=== PATIENT | female | born 1985 | race African-American/Black ===

== ENCOUNTER 2018-06-02 12:58 | Inpatient (IN) | payer OTHER ==
[2018-06-02 15:32] VITALS: BMI 25.6
--- NOTE | 2018-06-02 17:03 | HP ---
CIWA Score - CIWA Score Nausea/Vomitin-No Nausea/No Vomiting Muscle Tremors: 2 Anxiety: 3 Agitation: 3 Paroxysmal Sweats: No Perspiration Orientation: 0-Oriented Tacttile Disturbances: 0-None Auditory Disturbances: 0-None Visual Disturbances: 1-Very Mild Sensitivity Headache: 0-None Present CIWA-Ar Total Score: 9 Admission [facility] - HPI Chief Complaint: alcohol withdrawal symptoms Allergies/Adverse Reactions: Allergies Allergy/AdvReac Type Severity Reaction Status Date / Time No Known Allergies Allergy Verified 06/02/18 16:45 History of Present Illness: 33 yo female with hx of nicotine, alcohol, cocaine / crack, and marijuana dependence is here seeking detox for alcohol. Last detox [facility] 10 months ago. PMHX: HTN (no meds), anemia, bipolar. Denies suicidal / homicidal ideation or hx of suicide attempt. Report episode of seixure in 2011 reports not alcohol. Reports frequent blackouts iwht last peisode two weeks ago. Denies Longest period of sobriety 2 years. Exam Limitations: No Limitations - Ebola screening Have you traveled outside of the country in the last 21 days: No Have you had contact with anyone from an Ebola affected area: No Have you been sick,other than usual withdrawal symptoms: No Do you have a fever: No - Review of Systems Constitutional: Loss of Appetite, Changes in sleep, Unintentional Wgt. Loss (45 lbs in the past six months) EENT: reports: No Symptoms Reported Respiratory: reports: No Symptoms reported Cardiac: reports: No Symptoms Reported GI: reports: Poor Appetite, Poor Fluid Intake : reports: No Symptoms Reported Musculoskeletal: reports: No Symptoms Reported Integumentary: reports: No Symptoms Reported Endocrine: reports: See HPI Hematology: reports: No Symptoms Reported Psychiatric: reports: Mood/Affect Appropiate, Orientated x3 Other Systems: Reviewed and Negative Patient History - Patient Medical History Hx Anemia: Yes (not taking any iron supplement, no hx blood transfusion) Hx Asthma: No Hx Chronic Obstructive Pulmonary Disease (COPD): No Hx Cancer: No Hx Cardiac Disorders: No Hx Hypertension: No Hx Hypercholesterolemia: No Hx Pacemaker: No HX Cerebrovascular Accident: No Hx Seizures: No Hx Dementia: No Hx Diabetes: No Hx Gastrointestinal Disorders: No Hx Liver Disease: No Hx Genitourinary Disorders: No Hx Sexually Transmitted Disorders: No Hx Renal Disease (ESRD): No Hx Thyroid Disease: No Hx Human Immunodeficiency Virus (HIV): No (negative) Hx Hepatitis C: No Hx Depression: Yes Hx Suicide Attempt: No Hx Bipolar Disorder: Yes Hx Schizophrenia: No - Patient Surgical History Past Surgical History: Yes Other Surgical History: colposcopy 1998, Vaginal Biopsy & Leep in 1999 Anesthesia Reaction: No - PPD History Previous Implant?: Yes Documented Results: Negative w/proof Implanted On Prior [facility] Admission?: Yes Date: 01/17/15 PPD to be Administered?: Yes - Reproductive History Patient is a Female of Child Bearing Age (11 -55 yrs old): No Last Menstrual Period: 03/10/18 (irregular on Depo Inj) Patient : No - Smoking Cessation Smoking history: Current every day smoker Have you smoked in the past 12 months: Yes Aproximately how many cigarettes per day: 10 Hx Chewing Tobacco Use: No Initiated information on smoking cessation: Yes 'Breaking Loose' booklet given: 06/02/18 - Substance & Tx. History Hx Alcohol Use: Yes Hx Substance Use: Yes Substance Use Type: Alcohol, Cocaine, Marijuana Hx Substance Use Treatment: Yes (Last detox [facility] 10 months ago ) - Substances Abused Alcohol Route: Oral Frequency: Daily Amount used: 1-2 pints vodka Age of first use: 14 Date of Last Use: 06/02/18 Cocaine Route: Inhalation Frequency: Daily Amount used: $30-40 Age of first use: 19 Date of Last Use: 06/01/18 Marijuana/Hashish Route: Smoking Frequency: Daily Amount used: 3-4 bags Age of first use: 14 Date of Last Use: 06/01/18 Family Disease History - Family Disease History Family Disease History: Heart Disease: Father (HTN ), Mother (HTN) Admission Physical Exam [facility] - Vital Signs Vital Signs: Vital Signs - 24 hr 06/02/18 15:26 Temperature 97.8 F Pulse Rate 61 Respiratory 20 Rate Blood Pressure 137/91 - Physical General Appearance: Yes: Disheveled, Thin, Irritable, Sweating, Anxious HEENTM: Yes: EOMI, Hearing grossly Normal, Normal ENT Inspection, Normal Voice, LAZARUS, Pharynx Normal, Tm's normal Respiratory: Yes: Chest Non-Tender, Lungs Clear, Normal Breath Sounds, No Respiratory Distress, No Accessory Muscle Use Neck: Yes: Within Normal Limits Breast: Yes: Breast Exam Deferred Cardiology: Yes: Regular Rhythm, Regular Rate Abdominal: Yes: Normal Bowel Sounds, Non Tender, Flat, Soft Genitourinary: Yes: Within Normal Limits Back: Yes: Normal Inspection Extremities: Yes: Normal Capillary Refill, Normal Inspection, Normal Range of Motion, Non-Tender 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 NML intact, Fully Oriented, Alert, Motor Strength 5/5, Normal Response, Depressed Affect Integumentary: Yes: Normal Color, Warm, Diaphoresis Lymphatic: Yes: Within Normal Limits - Diagnostic (1) Marijuana dependence Current Visit: Yes Status: Acute (2) Alcohol dependence with withdrawal Current Visit: Yes Status: Acute Qualifiers: Complication of substance-induced condition: uncomplicated Qualified Code(s ): F10.230 - Alcohol dependence with withdrawal, uncomplicated (3) Cocaine dependence Current Visit: Yes Status: Acute (4) Essential hypertension Current Visit: Yes Status: Chronic Comment: not on meds (5) Nicotine dependence Current Visit: Yes Status: Chronic Qualifiers: Nicotine product type: cigarettes Substance use status: in withdrawal Qualified Code(s): F17.213 - Nicotine dependence, cigarettes, with withdrawal Cleared for Admission [facility] - Detox or Rehab [facility] Level of Care: Medically Supervised Detox Regimen/Protocol: Librium [facility] Breath Alcohol Content Breath Alcohol Content: 0 Urine Pregancy Test - Result Urine Test Results: Negative- NO Line Present Urine Drug Screen - Results Drug Screen Negative: No Urine Drug Screen Results: THC-Marijuana, ULISES-Cocaine
[2018-06-02] MEDS ORDERED: P-EPHED 60MG/TRIPROLIDI 2.5MG TABLET PO PRN (17:07)
[2018-06-02] MEDS ORDERED: MAGNESIUM HYDROX 2400MG/30ML ORAL SUSPENSION 30 ML CUP PO PRN (17:07)
[2018-06-02] MEDS ORDERED: LOPERAMIDE HCL 2 MG CAPSULE PO PRN (17:07)
[2018-06-02] MEDS ORDERED: ACETAMINOPHEN 325 MG TABLET (FP) PO PRN (17:07)
[2018-06-02] MEDS ORDERED: chlordiazePOXIDE HCL 25 MG CAPSULE PO PRN (17:07)
[2018-06-02] MEDS ORDERED: NICOTINE POLACRILEX 2 MG GUM BC PRN (17:07)
[2018-06-02] MEDS ORDERED: MENTHOL/PHENOL 1 EACH UD MM PRN (17:07)
[2018-06-02] MEDS ORDERED: MAG HYDROX/AL HYDROX/SIMETH 30 ML UNIT-DOSE CUP PO PRN (17:07)
[2018-06-02] MEDS ORDERED: MAGNESIUM CITRATE 300 ML BOTTLE PO PRN (17:07)
[2018-06-02] MEDS ORDERED: guaiFENesin/D-METHORPHAN HB 10 ML UNIT-DOSE CUPS PO PRN (17:07)
[2018-06-02] MEDS ORDERED: IBUPROFEN 400 MG TABLET (FP) PO PRN (17:07)
[2018-06-02] MEDS ORDERED: hydrOXYzine PAMOATE 50 MG CAPSULE (FP) PO PRN (17:07)
[2018-06-02 21:14] LABS: URINE APPEARANCE CLEAR; URINE BILIRUBIN NEGATIVE (<2.0 mg/dL); URINE COLOR LTYELLOW; URINE GLUCOSE (UA) NEGATIVE (NEGATIVE); URINE KETONE NEGATIVE (NEGATIVE); URINE NITRITE NEGATIVE (NEGATIVE); URINE PROTEIN NEGATIVE (NEGATIVE); URINE UROBILINOGEN NEGATIVE mg/dL (0.2-1.0)
[2018-06-02 21:19] LABS: URINE LEUK ESTERASE 2+ (NEGATIVE)
[2018-06-02 21:26] LABS: EPI CELLS RARE /HPF (FEW); URINE MUCUS RARE
[2018-06-02] MEDS ORDERED: MELATONIN 5 MG TABLETS PO PRN (22:00)
[2018-06-02] MEDS: THIAMINE HCL 100 MG TABLET (FP) PO SCH (22:54)
[2018-06-02] MEDS: chlordiazePOXIDE HCL 25 MG CAPSULE PO SCH (22:54)
[2018-06-03] MEDS: chlordiazePOXIDE HCL 25 MG CAPSULE PO SCH ×4 (06:12→22:41)
--- NOTE | 2018-06-03 08:55 | CONSULT ---
[facility] Psychiatric Consult - Data Date of interview: 06/03/18 Admission source: [facility] Identifying data: This is 33 years old female, single mother of two, woth no income, with no psychiatric hospitalization history, with history of nicotine , alcohol, cocaine / crack, and marijuana dependence is here seeking for detox , reporting Alcohol withdrawal symptoms. Substance Abuse History: Smoking history: Current every day smoker. Have you smoked in the past 12 months: Yes. Aproximately how many cigarettes per day: 10. Hx Chewing Tobacco Use: No. Initiated information on smoking cessation: Yes. 'Breaking Loose' booklet given: 06/02/18. - Substance & Tx. History. Hx Alcohol Use: Yes. Hx Substance Use: Yes. Substance Use Type: Alcohol, Cocaine , Marijuana. Hx Substance Use Treatment: Yes (Last detox [facility] 10 months ago ). - Substances Abused. Alcohol. Route: Oral. Frequency: Daily. Amount used: 1-2 pints vodka. Age of first use: 14. Date of Last Use: 06/02/18. Cocaine. Route: Inhalation. Frequency: Daily. Amount used: $30- 40. Age of first use: 19. Date of Last Use: 06/01/18. Marijuana/Hashish. Route: Smoking. Frequency: Daily. Amount used: 3-4 bags. Age of first use: 14. Date of Last Use: 06/01/18 Medical History: HTN,Anemia history Psychiatric History: Oat[place] reports history of depression and anxiety, as per vomputer carries Bipolr Disorder, reports no medications taking prior to admission. Denies suicidal and homicidal history Physical/Sexual Abuse/Trauma History: Denies Additional Comment: Observation. Detox Unit Care Protocol Mental Status Exam - Mental Status Exam Alert and Oriented to: Person Patient Appearance: Unkempt Mood: Sad Affect: Flat Patient Behavior: Sedated Speech Pattern: Delayed Voice Loudness: Mildly Soft/Quiet Thought Process: Circumstantial Thought Disorder: Being Controlled Hallucinations: Denies Suicidal Ideation: Denies Homicidal Ideation: Denies Insight/Judgement: Fair Sleep: Difficulty falling asleep Muscle strength/Tone: Mild Hypotonicity Gait/Station: Shuffling Additional Comments: Observation. Detox Unit Care Protocol Psychiatric Findings - Problem List ([place] 1, 2,3) (1) Alcohol dependence with withdrawal Current Visit: Yes Status: Acute Qualifiers: Complication of substance-induced condition: uncomplicated Qualified Code(s ): F10.230 - Alcohol dependence with withdrawal, uncomplicated (2) Cocaine dependence Current Visit: Yes Status: Acute (3) Marijuana dependence Current Visit: Yes Status: Acute (4) Essential hypertension Current Visit: Yes Status: Chronic Comment: not on meds (5) Nicotine dependence Current Visit: Yes Status: Chronic Qualifiers: Nicotine product type: cigarettes Substance use status: in withdrawal Qualified Code(s): F17.213 - Nicotine dependence, cigarettes, with withdrawal (6) Bipolar disorder Current Visit: No Status: Active (7) Bipolar affective disorder depressed partial or unspecified remission Current Visit: No Status: Acute (8) Alcohol dependence Current Visit: No Status: Chronic - Initial Treatment Plan Initial Treatment Plan: Observation. Detox Unit Care Protocol
--- NOTE | 2018-06-03 09:23 | PN ---
S CIWA - CIWA Score Nausea/Vomitin-Mild Nausea/No Vomiting Muscle Tremors: 4-Moderate,w/Arms Extend Anxiety: 3 Agitation: 3 Paroxysmal Sweats: 1-Minimal Palms Moist Orientation: 0-Oriented Tacttile Disturbances: 0-None Auditory Disturbances: 0-None Visual Disturbances: 0-None Headache: 0-None Present CIWA-Ar Total Score: 12 BHS Progress Note (SOAP) Subjective: sweat tremor low energy trouble sleep at night poor concentration Objective: 06/03/18 09:27 Vital Signs Temperature 97.7 F 06/03/18 07:38 Pulse Rate 87 06/03/18 07:38 Respiratory Rate 18 06/03/18 07:38 Blood Pressure 150/90 06/03/18 07:38 O2 Sat by Pulse Oximetry (%) Laboratory Last Values Urine Color Ltyellow 06/02/18 20:30 Urine Appearance Clear 06/02/18 20:30 Urine pH 5.0 (5.0-8.0) 06/02/18 20:30 Ur Specific [place] 1.013 (1.001-1.035) 06/02/18 20:30 Urine Protein Negative (NEGATIVE) 06/02/18 20:30 Urine Glucose (UA) Negative (NEGATIVE) 06/02/18 20:30 Urine Ketones Negative (NEGATIVE) 06/02/18 20:30 Urine Blood Negative (NEGATIVE) 06/02/18 20:30 Urine Nitrite Negative (NEGATIVE) 06/02/18 20:30 Urine Bilirubin Negative (<2.0 mg/dL) 06/02/18 20:30 Urine Urobilinogen Negative mg/dL (0.2-1.0) 06/02/18 20:30 Ur Leukocyte Esterase 2+ (NEGATIVE) H 06/02/18 20:30 Urine WBC (Auto) 37 /hpf (3-5) 06/02/18 20:30 Urine RBC (Auto) 2 /hpf (0-3) 06/02/18 20:30 Ur Epithelial Cells Rare /HPF (FEW) 06/02/18 20:30 Urine Mucus Rare 06/02/18 20:30 lab noted repeat ua 06/03/18 09:28 increase oral fluid personal hygiene Assessment: 06/03/18 09:29 withdrawal sx Plan: continue detox increase oral fluid repeat ua personal hygiene
--- NOTE | 2018-06-03 10:08 | EKG ---
Test Reason : Blood Pressure : / mmHG Vent. Rate : 062 BPM Atrial Rate : 062 BPM P-R Int : 146 ms QRS Dur : 084 ms QT Int : 454 ms P-R-T Axes : 000 016 031 degrees QTc Int : 460 ms NORMAL SINUS RHYTHM MINIMAL VOLTAGE CRITERIA FOR LVH, MAY BE NORMAL VARIANT BORDERLINE ECG NO PREVIOUS ECGS AVAILABLE Confirmed by LUISITO GERMAN MD ([id number]) on 06/03/2018 10:08:31 AM Referred By: Confirmed By:LUISITO GERMAN MD
[2018-06-03] MEDS: NICOTINE 14 MG/24 HOURS TOPICAL PATCH TD SCH (11:03)
[2018-06-03] MEDS: PRENATAL VITAMINS W/ FOLIC ACID TABLET (FP) PO SCH (11:03)
[2018-06-03] MEDS: THIAMINE HCL 100 MG TABLET (FP) PO SCH (22:41)
[2018-06-04] MEDS: chlordiazePOXIDE HCL 25 MG CAPSULE PO SCH ×3 (07:31→17:19)
[2018-06-04 10:07] LABS: HEMATOCRIT 36.4 % (32.4-45.2); HEMOGLOBIN 11.9 GM/dL (10.7-15.3); MCH 28.2 pg (25.7-33.7); MCHC 32.8 g/dl (32.0-36.0); MEAN CELL VOLUME 85.9 fl (80-96); MEAN PLT VOLUME 9.3 fl (7.5-11.1); PLATELET COUNT 189 K/MM3 (134-434); RBC 4.24 M/mm3 (3.60-5.2); RDW 14.3 % (11.6-15.6); WHITE BLOOD COUNT 2.5 K/mm3 (4.0-10.0)
--- NOTE | 2018-06-04 10:16 | PN ---
S CIWA - CIWA Score Nausea/Vomitin-No Nausea/No Vomiting Muscle Tremors: 4-Moderate,w/Arms Extend Anxiety: 3 Agitation: 3 Paroxysmal Sweats: 1-Minimal Palms Moist Orientation: 0-Oriented Tacttile Disturbances: 1-Very Mild Itch/Numbness Auditory Disturbances: 0-None Visual Disturbances: 0-None Headache: 0-None Present CIWA-Ar Total Score: 12 BHS Progress Note (SOAP) Subjective: sweat tremor trouble sleep at night low energy Objective: 06/04/18 10:12 Vital Signs Temperature 97.9 F 06/04/18 07:56 Pulse Rate 92 H 06/04/18 07:56 Respiratory Rate 20 06/04/18 07:56 Blood Pressure 123/73 06/04/18 07:56 O2 Sat by Pulse Oximetry (%) Laboratory Last Values Urine Color Ltyellow 06/02/18 20:30 Urine Appearance Clear 06/02/18 20:30 Urine pH 5.0 (5.0-8.0) 06/02/18 20:30 Ur Specific [place] 1.013 (1.001-1.035) 06/02/18 20:30 Urine Protein Negative (NEGATIVE) 06/02/18 20:30 Urine Glucose (UA) Negative (NEGATIVE) 06/02/18 20:30 Urine Ketones Negative (NEGATIVE) 06/02/18 20:30 Urine Blood Negative (NEGATIVE) 06/02/18 20:30 Urine Nitrite Negative (NEGATIVE) 06/02/18 20:30 Urine Bilirubin Negative (<2.0 mg/dL) 06/02/18 20:30 Urine Urobilinogen Negative mg/dL (0.2-1.0) 06/02/18 20:30 Ur Leukocyte Esterase 2+ (NEGATIVE) H 06/02/18 20:30 Urine WBC (Auto) 37 /hpf (3-5) 06/02/18 20:30 Urine RBC (Auto) 2 /hpf (0-3) 06/02/18 20:30 Ur Epithelial Cells Rare /HPF (FEW) 06/02/18 20:30 Urine Mucus Rare 06/02/18 20:30 lab noted repeat ua Assessment: 06/04/18 10:14 alcohol withdrawal sx Plan: continue detox repeat ua result pending oral fluid personal hygiene
[2018-06-04 10:19] LABS: CHLORIDE 111 mmol/L (98-107); POTASSIUM 3.8 mmol/L (3.5-5.1); SODIUM 141 mmol/L (136-145)
[2018-06-04 10:41] LABS: ALBUMIN 3.1 g/dl (3.4-5.0); ALK PHOS 49 U/L (45-117); ANION GAP 8 (8-16); BILIRUBIN,TOTAL 0.2 mg/dL (0.2-1.0); BLOOD UREA NITROGEN 13 mg/dL (7-18); CALCIUM 8.3 mg/dL (8.5-10.1); CO2 22 mmol/L (21-32); CREATININE 0.8 mg/dL (0.55-1.02); GLUCOSE,RANDOM 87 mg/dL (74-106); SGOT/AST 13 U/L (15-37); SGPT/ALT 21 U/L (12-78); TOT PROT 6.6 g/dl (6.4-8.2)
[2018-06-04] MEDS: NICOTINE 14 MG/24 HOURS TOPICAL PATCH TD SCH (11:54)
[2018-06-04] MEDS: PRENATAL VITAMINS W/ FOLIC ACID TABLET (FP) PO SCH (11:54)
--- NOTE | 2018-06-04 12:02 | CONSULT ---
[facility] Psychiatric Consult - Data Date of interview: 06/04/18 Admission source: [facility] Identifying data: This is m33 years old female, single mother of 2, unempoloyd , on PA, with n o psychiatric hospitalization history, with hx of nicotine, alcohol, cocaine / crack, and marijuana dependence is here seeking detox for alcohol, reporting Alcohol withdrawalo symptoms. Last detox [facility] 10 months ago. PMHX: HTN (no meds), anemia, bipolar. Denies suicidal / homicidal ideation or hx of suicide attempt. Report episode of seixure in 2011 reports not alcohol. Reports frequent blackouts iwht last peisode two weeks ago. Denies Longest period of sobriety 2 years. Substance Abuse History: Smoking history: Current every day smoker. Have you smoked in the past 12 months: Yes. Aproximately how many cigarettes per day: 10. Hx Chewing Tobacco Use: No. Initiated information on smoking cessation: Yes. 'Breaking Loose' booklet given: 06/02/18. - Substance & Tx. History. Hx Alcohol Use: Yes. Hx Substance Use: Yes. Substance Use Type: Alcohol, Cocaine , Marijuana. Hx Substance Use Treatment: Yes (Last detox [facility] 10 months ago ). - Substances Abused. Alcohol. Route: Oral. Frequency: Daily. Amount used: 1-2 pints vodka. Age of first use: 14. Date of Last Use: 06/02/18. Cocaine. Route: Inhalation. Frequency: Daily. Amount used: $30- 40. Age of first use: 19. Date of Last Use: 06/01/18. Marijuana/Hashish. Route: Smoking. Frequency: Daily. Amount used: 3-4 bags. Age of first use: 14. Date of Last Use: 06/01/18 Medical History: HTN, Psychiatric History: Patient reports history of amxiety and insomnia, reports taking prior to admission: Seroquel 50mg po qhs Physical/Sexual Abuse/Trauma History: Denies Additional Comment: Seroquel 50mg po qhs Mental Status Exam - Mental Status Exam Alert and Oriented to: Place, Person Cognitive Function: Fair Patient Appearance: Well Groomed Mood: Anxious Affect: Mood Congruent Patient Behavior: Cooperative Speech Pattern: Appropriate Voice Loudness: Normal Thought Process: Goal Oriented Thought Disorder: Being Controlled Hallucinations: Denies Suicidal Ideation: Denies Homicidal Ideation: Denies Insight/Judgement: Fair Sleep: Difficulty falling asleep Appetite: Fair Muscle strength/Tone: Normal Gait/Station: Normal Additional Comments: Seroquel 50mg po qhs Psychiatric Findings - Problem List ([place] 1, 2,3) (1) Alcohol dependence with withdrawal Current Visit: Yes Status: Acute Qualifiers: Complication of substance-induced condition: uncomplicated Qualified Code(s ): F10.230 - Alcohol dependence with withdrawal, uncomplicated (2) Cocaine dependence Current Visit: Yes Status: Acute (3) Marijuana dependence Current Visit: Yes Status: Acute (4) Essential hypertension Current Visit: Yes Status: Chronic Comment: not on meds (5) Nicotine dependence Current Visit: Yes Status: Chronic Qualifiers: Nicotine product type: cigarettes Substance use status: in withdrawal Qualified Code(s): F17.213 - Nicotine dependence, cigarettes, with withdrawal (6) Bipolar disorder Current Visit: No Status: Active (7) Bipolar affective disorder depressed partial or unspecified remission Current Visit: No Status: Acute (8) Alcohol dependence Current Visit: No Status: Chronic - Initial Treatment Plan Initial Treatment Plan: Seroquel 50mg po qhs
[2018-06-04] MEDS ORDERED: QUEtiapine FUMARATE 100 MG TABLET (FP) PO SCH (22:00)
[2018-06-04] MEDS: chlordiazePOXIDE 5 MG CAPSULE PO SCH (23:18)
[2018-06-04] MEDS: QUEtiapine FUMARATE 50 MG TABLET PO SCH (23:18)
[2018-06-04] MEDS: THIAMINE HCL 100 MG TABLET (FP) PO SCH (23:20)
[2018-06-04 23:59] LABS: URINE APPEARANCE CLEAR; URINE BILIRUBIN NEGATIVE (<2.0 mg/dL); URINE COLOR STRAW; URINE GLUCOSE (UA) NEGATIVE (NEGATIVE); URINE KETONE NEGATIVE (NEGATIVE); URINE LEUK ESTERASE NEGATIVE (NEGATIVE); URINE NITRITE NEGATIVE (NEGATIVE); URINE PROTEIN NEGATIVE (NEGATIVE); URINE UROBILINOGEN NEGATIVE mg/dL (0.2-1.0)
[2018-06-05] MEDS: chlordiazePOXIDE 5 MG CAPSULE PO SCH ×3 (06:06→19:04)
[2018-06-05] MEDS: PRENATAL VITAMINS W/ FOLIC ACID TABLET (FP) PO SCH (11:07)
[2018-06-05] MEDS: NICOTINE 14 MG/24 HOURS TOPICAL PATCH TD SCH (11:09)
--- NOTE | 2018-06-05 15:14 | PN ---
BHS Progress Note (SOAP) Subjective: pt without complaints Objective: 06/05/18 15:07 Vital Signs - 24 hr 06/04/18 06/04/18 06/05/18 17:46 22:13 06:27 Temperature 98.1 F 98.2 F 97.7 F Pulse Rate 81 79 70 Respiratory 18 18 18 Rate Blood Pressure 116/56 139/98 125/88 06/05/18 06/05/18 09:46 13:59 Temperature 97.1 F L 97.9 F Pulse Rate 65 74 Respiratory 16 20 Rate Blood Pressure 88/45 130/99 Laboratory Tests 06/02/18 06/04/18 06/04/18 20:30 08:00 08:00 WBC 2.5 L RBC 4.24 Hgb 11.9 Hct 36.4 MCV 85.9 MCH 28.2 MCHC 32.8 RDW 14.3 Plt Count 189 MPV 9.3 Sodium 141 Potassium 3.8 Chloride 111 H Carbon Dioxide 22 Anion Gap 8 BUN 13 Creatinine 0.8 Creat Clearance w eGFR > 60 Random Glucose 87 Calcium 8.3 L Total Bilirubin 0.2 AST 13 L ALT 21 Alkaline Phosphatase 49 Total Protein 6.6 Albumin 3.1 L Urine Color Ltyellow Urine Appearance Clear Urine pH 5.0 Ur Specific [place] 1.013 Urine Protein Negative Urine Glucose (UA) Negative Urine Ketones Negative Urine Blood Negative Urine Nitrite Negative Urine Bilirubin Negative Urine Urobilinogen Negative Ur Leukocyte Esterase 2+ H Urine WBC (Auto) 37 Urine RBC (Auto) 2 Ur Epithelial Cells Rare Urine Mucus Rare RPR Titer 06/04/18 06/04/18 08:00 10:53 WBC RBC Hgb Hct MCV MCH MCHC RDW Plt Count MPV Sodium Potassium Chloride Carbon Dioxide Anion Gap BUN Creatinine Creat Clearance w eGFR Random Glucose Calcium Total Bilirubin AST ALT Alkaline Phosphatase Total Protein Albumin Urine Color Straw Urine Appearance Clear Urine pH 7.0 D Ur Specific [place] 1.010 Urine Protein Negative Urine Glucose (UA) Negative Urine Ketones Negative Urine Blood Negative Urine Nitrite Negative Urine Bilirubin Negative Urine Urobilinogen Negative Ur Leukocyte Esterase Negative Urine WBC (Auto) Urine RBC (Auto) Ur Epithelial Cells Urine Mucus RPR Titer Nonreactive nl Vs and grossly nl PE Assessment: 06/05/18 15:14 33 yo female with hx of nicotine, alcohol, cocaine / crack, and marijuana dependence is here for alcohol detox Plan: continue alcohol detox protocol
[2018-06-05] MEDS: THIAMINE HCL 100 MG TABLET (FP) PO SCH (22:52)
[2018-06-05] MEDS: QUEtiapine FUMARATE 50 MG TABLET PO SCH (22:52)
[2018-06-05] MEDS: chlordiazePOXIDE HCL 10 MG CAPSULE PO SCH (22:52)
[2018-06-06] MEDS: chlordiazePOXIDE HCL 10 MG CAPSULE PO SCH ×2 (06:03→10:52)
[2018-06-06] MEDS: PRENATAL VITAMINS W/ FOLIC ACID TABLET (FP) PO SCH (10:52)
[2018-06-06] MEDS: NICOTINE 14 MG/24 HOURS TOPICAL PATCH TD SCH (10:53)
[2018-06-06 11:36] VITALS: BP 145/96; PULSE 71; TEMP 98.1
--- NOTE | 2018-06-06 18:48 | DS ---
[facility] Detox Discharge Summary Admission Date: 06/02/18 Discharge Date: 06/06/18 - History Present History: Alcohol Dependence - Physical Exam Results Vital Signs: Vital Signs Temperature 98.1 F 06/06/18 11:35 Pulse Rate 71 06/06/18 11:35 Respiratory Rate 20 06/06/18 11:35 Blood Pressure 145/96 06/06/18 11:35 O2 Sat by Pulse Oximetry (%) Pertinent Admission Physical Exam Findings: withdrawal sx Laboratory Last Values WBC 2.5 K/mm3 (4.0-10.0) L 06/04/18 08:00 RBC 4.24 M/mm3 (3.60-5.2) 06/04/18 08:00 Hgb 11.9 GM/dL (10.7-15.3) 06/04/18 08:00 Hct 36.4 % (32.4-45.2) 06/04/18 08:00 MCV 85.9 fl (80-96) 06/04/18 08:00 MCH 28.2 pg (25.7-33.7) 06/04/18 08:00 MCHC 32.8 g/dl (32.0-36.0) 06/04/18 08:00 RDW 14.3 % (11.6-15.6) 06/04/18 08:00 Plt Count 189 K/MM3 (134-434) 06/04/18 08:00 MPV 9.3 fl (7.5-11.1) 06/04/18 08:00 Sodium 141 mmol/L (136-145) 06/04/18 08:00 Potassium 3.8 mmol/L (3.5-5.1) 06/04/18 08:00 Chloride 111 mmol/L (98-107) H 06/04/18 08:00 Carbon Dioxide 22 mmol/L (21-32) 06/04/18 08:00 Anion Gap 8 (8-16) 06/04/18 08:00 BUN 13 mg/dL (7-18) 06/04/18 08:00 Creatinine 0.8 mg/dL (0.55-1.02) 06/04/18 08:00 Creat Clearance w eGFR > 60 (>60) 06/04/18 08:00 Random Glucose 87 mg/dL (74-106) 06/04/18 08:00 Calcium 8.3 mg/dL (8.5-10.1) L 06/04/18 08:00 Total Bilirubin 0.2 mg/dL (0.2-1.0) 06/04/18 08:00 AST 13 U/L (15-37) L 06/04/18 08:00 ALT 21 U/L (12-78) 06/04/18 08:00 Alkaline Phosphatase 49 U/L (45-117) 06/04/18 08:00 Total Protein 6.6 g/dl (6.4-8.2) 06/04/18 08:00 Albumin 3.1 g/dl (3.4-5.0) L 06/04/18 08:00 Urine Color Straw 06/04/18 10:53 Urine Appearance Clear 06/04/18 10:53 Urine pH 7.0 (5.0-8.0) D 06/04/18 10:53 Ur Specific [place] 1.010 (1.001-1.035) 06/04/18 10:53 Urine Protein Negative (NEGATIVE) 06/04/18 10:53 Urine Glucose (UA) Negative (NEGATIVE) 06/04/18 10:53 Urine Ketones Negative (NEGATIVE) 06/04/18 10:53 Urine Blood Negative (NEGATIVE) 06/04/18 10:53 Urine Nitrite Negative (NEGATIVE) 06/04/18 10:53 Urine Bilirubin Negative (<2.0 mg/dL) 06/04/18 10:53 Urine Urobilinogen Negative mg/dL (0.2-1.0) 06/04/18 10:53 Ur Leukocyte Esterase Negative (NEGATIVE) 06/04/18 10:53 Urine WBC (Auto) 37 /hpf (3-5) 06/02/18 20:30 Urine RBC (Auto) 2 /hpf (0-3) 06/02/18 20:30 Ur Epithelial Cells Rare /HPF (FEW) 06/02/18 20:30 Urine Mucus Rare 06/02/18 20:30 RPR Titer Nonreactive (NONREACTIVE) 06/04/18 08:00 labs noted - Treatment Hospital Course: Detox Protocol Followed, Detoxed Safely, Responded well, Discharged Condition Good, Rehab Referral Accepted - Medication Discharge Medications: Ambulatory Orders Quetiapine Fumarate [Seroquel -] 50 mg PO HS #30 tab 06/04/18 - Diagnosis (1) Marijuana dependence Status: Acute (2) Essential hypertension Status: Chronic (3) Nicotine dependence Status: Chronic Qualifiers: Nicotine product type: cigarettes Substance use status: in withdrawal Qualified Code(s): F17.213 - Nicotine dependence, cigarettes, with withdrawal - AMA Did Patient Leave Against Medical Advice: No
[2018-06-06] MEDS ORDERED: IBUPROFEN 400 MG TABLET (FP) PO PRN (18:49)
[2018-06-06] MEDS ORDERED: guaiFENesin/D-METHORPHAN HB 10 ML UNIT-DOSE CUPS PO PRN (18:49)
[2018-06-06] MEDS ORDERED: MAG HYDROX/AL HYDROX/SIMETH 30 ML UNIT-DOSE CUP PO PRN (18:49)
[2018-06-06] MEDS ORDERED: P-EPHED 60MG/TRIPROLIDI 2.5MG TABLET PO PRN (18:49)
[2018-06-06] MEDS ORDERED: MAGNESIUM HYDROX 2400MG/30ML ORAL SUSPENSION 30 ML CUP PO PRN (18:49)
[2018-06-06] MEDS ORDERED: MENTHOL/PHENOL 1 EACH UD MM PRN (18:49)
[2018-06-06] MEDS ORDERED: MAGNESIUM CITRATE 300 ML BOTTLE PO PRN (18:49)
[2018-06-06] MEDS ORDERED: ACETAMINOPHEN 325 MG TABLET (FP) PO PRN (18:49)
[2018-06-06] MEDS ORDERED: LOPERAMIDE HCL 2 MG CAPSULE PO PRN (18:49)
[2018-06-06] MEDS ORDERED: THIAMINE HCL 100 MG TABLET (FP) PO SCH (22:00)
[2018-06-06] MEDS ORDERED: MELATONIN 5 MG TABLETS PO PRN (22:00)
[2018-06-07] MEDS ORDERED: PRENATAL VITAMINS W/ FOLIC ACID TABLET (FP) PO SCH (10:00)
== END 2018-06-06 12:40 | disposition other institution (70) | DRG 774 ==
LOC: YASAS 12:58 → Y6N 17:36
PROVIDERS: ADMIT Surgery; ATTEND Surgery
PROC: HZ2ZZZZ Detoxification Services for Substance Abuse Treatment (ICD-10-PCS; principal; 2018-06-02)
DX: F10.230 Alcohol dependence with withdrawal, uncomplicated (principal); F14.20 Cocaine dependence, uncomplicated; F12.20 Cannabis dependence, uncomplicated; F17.213 Nicotine dependence, cigarettes, with withdrawal; F31.75 Bipolar disorder, in partial remission, most recent episode depressed; I10 Essential (primary) hypertension; D64.9 Anemia, unspecified; Z59.0 Homelessness
CPT/HCPCS: 36415; 80053; 81003; 81015; 85027; 86593; 93005; 93010

== ENCOUNTER 2018-06-06 12:54 | Inpatient (IN) | payer OTHER ==
[2018-06-06 14:01] VITALS: TEMP 97.9
--- NOTE | 2018-06-06 16:57 | PN ---
S Progress Note Note: As per nutsing reports patint rewuested Seroquel 50mg po qhs Yrder issues Seroquel 50mg po qhs
[2018-06-06] MEDS ORDERED: NICOTINE POLACRILEX 2 MG GUM BUC PRN (21:37)
[2018-06-06] MEDS ORDERED: LOPERAMIDE HCL 2 MG CAPSULE PO PRN (21:37)
[2018-06-06] MEDS ORDERED: hydrOXYzine PAMOATE 25 MG CAPSULE (FP) PO PRN (21:37)
[2018-06-06] MEDS ORDERED: guaiFENesin/D-METHORPHAN HB 10 ML UNIT-DOSE CUPS PO PRN (21:37)
[2018-06-06] MEDS ORDERED: IBUPROFEN 400 MG TABLET (FP) PO PRN (21:37)
[2018-06-06] MEDS ORDERED: MENTHOL/PHENOL 1 EACH UD MM PRN (21:37)
[2018-06-06] MEDS ORDERED: P-EPHED 60MG/TRIPROLIDI 2.5MG TABLET PO PRN (21:37)
[2018-06-06] MEDS ORDERED: MAG HYDROX/AL HYDROX/SIMETH 30 ML UNIT-DOSE CUP PO PRN (21:37)
[2018-06-06] MEDS ORDERED: MAGNESIUM HYDROX 2400MG/30ML ORAL SUSPENSION 30 ML CUP PO PRN (21:37)
[2018-06-06] MEDS ORDERED: ACETAMINOPHEN 325 MG TABLET (FP) PO PRN (21:37)
[2018-06-06] MEDS ORDERED: MAGNESIUM CITRATE 300 ML BOTTLE PO PRN (21:37)
--- NOTE | 2018-06-06 21:47 | HP ---
[facility] Rehab Assess/Revision - Admission History Admitted to Rehab from: [facility] Date of Admission to Rehab: [facility] - Vital signs Vital Signs: Vital Signs Period Temp Pulse Resp BP Sys/[place] Pulse Ox Last 24 Hr 97.9 F 74 16 126/84 - Findings Detox History & Physical reviewed: Yes Concur with findings: Yes
[2018-06-06] MEDS ORDERED: QUEtiapine FUMARATE 200 MG TABLET PO SCH (22:00)
[2018-06-06] MEDS ORDERED: THIAMINE HCL 100 MG TABLET (FP) PO SCH (22:00)
[2018-06-06] MEDS ORDERED: MELATONIN 5 MG TABLETS PO PRN (22:00)
[2018-06-06] MEDS ORDERED: QUEtiapine FUMARATE 50 MG TABLET PO SCH (22:15)
[2018-06-07] MEDS ORDERED: PRENATAL VITAMINS W/ FOLIC ACID TABLET (FP) PO SCH (10:00)
[2018-06-07] MEDS ORDERED: NICOTINE 14 MG/24 HOURS TOPICAL PATCH TD SCH (10:00)
[2018-06-07 10:19] VITALS: BP 131/83; PULSE 83
== END 2018-06-07 17:26 | disposition left against medical advice (07) | DRG 770 ==
LOC: YASAS 12:54 → Y3E 12:55
PROVIDERS: ADMIT Psychiatry & Neurology Psychiatry; ATTEND Psychiatry & Neurology Psychiatry
PROC: HZ42ZZZ Group Counseling for Substance Abuse Treatment, Cognitive-Behavioral (ICD-10-PCS; principal; 2018-06-06)
PROC: HZ42ZZZ Group Counseling for Substance Abuse Treatment, Cognitive-Behavioral (ICD-10-PCS; 2018-06-06)
DX: F10.20 Alcohol dependence, uncomplicated (principal); F14.20 Cocaine dependence, uncomplicated; F12.20 Cannabis dependence, uncomplicated; F17.213 Nicotine dependence, cigarettes, with withdrawal; I10 Essential (primary) hypertension; Z59.0 Homelessness

== ENCOUNTER 2020-12-09 08:47 | Inpatient (IN) | payer OTHER ==
[2020-12-09 10:15] VITALS: BMI 23.3
[2020-12-09] MEDS ORDERED: chlordiazePOXIDE HCL 25 MG CAPSULE PO ONE (11:11)
[2020-12-09] MEDS ORDERED: hydrOXYzine PAMOATE 25 MG CAPSULE (FP) PO PRN (11:11)
[2020-12-09] MEDS ORDERED: ACETAMINOPHEN 325 MG TABLET (FP) PO PRN (11:11)
[2020-12-09] MEDS ORDERED: ONDANSETRON *ODT* 4 MG TABLET SL PRN (11:11)
[2020-12-09] MEDS ORDERED: IBUPROFEN 400 MG TABLET (FP) PO PRN (11:11)
[2020-12-09] MEDS ORDERED: MAG HYDROX/AL HYDROX/SIMETH 30 ML UNIT-DOSE CUP PO PRN (11:11)
[2020-12-09] MEDS ORDERED: chlordiazePOXIDE HCL 25 MG CAPSULE PO PRN (11:11)
[2020-12-09] MEDS ORDERED: MAGNESIUM HYDROX 2400MG/30ML ORAL SUSPENSION 30 ML CUP PO PRN (11:11)
[2020-12-09] MEDS ORDERED: BISMUTH SUBSALICYLATE 524 MG/30 ML UD PO PRN (11:11)
[2020-12-09] MEDS ORDERED: MAGNESIUM CITRATE 300 ML BOTTLE PO PRN (11:11)
[2020-12-09] MEDS: NICOTINE 21 MG/24 HOURS TOPICAL PATCH TD SCH (13:17)
[2020-12-09] MEDS: chlordiazePOXIDE HCL 25 MG CAPSULE PO SCH ×2 (17:24→23:18)
[2020-12-09] MEDS: THIAMINE HCL 100 MG TABLET (FP) PO SCH (23:18)
[2020-12-09] MEDS: MELATONIN 5 MG TABLETS PO SCH (23:18)
[2020-12-10] MEDS: MENTHOL/PHENOL 1 EACH UD MM PRN ×4 (01:39→20:20)
[2020-12-10] MEDS: chlordiazePOXIDE HCL 25 MG CAPSULE PO SCH ×4 (06:21→22:20)
[2020-12-10] MEDS: NICOTINE 21 MG/24 HOURS TOPICAL PATCH TD SCH (10:37)
[2020-12-10] MEDS: guaiFENesin 600 MG TABLET.ER (FP) PO SCH ×2 (10:37→22:20)
[2020-12-10] MEDS: HYDROCHLOROTHIAZIDE 25 MG TABLET (FP) PO SCH (10:37)
[2020-12-10] MEDS: PRENATAL VITAMINS W/ FOLIC ACID TABLET (FP) PO SCH (10:37)
[2020-12-10 16:55] LABS: POTASSIUM 3.9 mmol/L (3.5-5.1)
[2020-12-10 16:56] LABS: HEMATOCRIT 38.8 % (32.4-45.2); HEMOGLOBIN 12.5 GM/dL (10.7-15.3); MCH 27.6 pg (25.7-33.7); MCHC 32.3 g/dl (32.0-36.0); MEAN CELL VOLUME 85.4 fl (80-96); PLATELET COUNT 155 K/MM3 (134-434); RBC 4.54 M/mm3 (3.60-5.2); RDW 16.4 % (11.6-15.6); WHITE BLOOD COUNT 3.4 K/mm3 (4.0-10.0)
[2020-12-10 17:00] LABS: ALBUMIN 3.6 g/dl (3.4-5.0); BLOOD UREA NITROGEN 17.1 mg/dL (7-18); CALCIUM 8.6 mg/dL (8.5-10.1)
[2020-12-10 17:03] LABS: CREATININE 0.8 mg/dL (0.55-1.3)
[2020-12-10 17:04] LABS: BILIRUBIN,TOTAL 0.3 mg/dL (0.2-1); TOT PROT 7.6 g/dl (6.4-8.2)
[2020-12-10] MEDS: THIAMINE HCL 100 MG TABLET (FP) PO SCH (22:20)
[2020-12-10] MEDS: MELATONIN 5 MG TABLETS PO SCH (22:41)
[2020-12-11] MEDS: chlordiazePOXIDE HCL 25 MG CAPSULE PO SCH ×4 (06:50→22:09)
[2020-12-11] MEDS: guaiFENesin 600 MG TABLET.ER (FP) PO SCH ×2 (10:15→22:09)
[2020-12-11] MEDS: HYDROCHLOROTHIAZIDE 25 MG TABLET (FP) PO SCH (10:15)
[2020-12-11] MEDS: PRENATAL VITAMINS W/ FOLIC ACID TABLET (FP) PO SCH (10:15)
[2020-12-11] MEDS: NICOTINE 21 MG/24 HOURS TOPICAL PATCH TD SCH (10:18)
[2020-12-11] MEDS ORDERED: PENICILLIN G BENZATHINE 2,400,000 UNIT/4 ML PFS IM ONE (11:03)
[2020-12-11] MEDS: AMMONIUM LACTATE 12% LOTION 225 GM BOTTLE TP SCH ×2 (12:26→22:09)
[2020-12-11] MEDS: METHOCARBAMOL 500 MG TABLET PO PRN (17:35)
[2020-12-11] MEDS: MELATONIN 5 MG TABLETS PO SCH (22:10)
[2020-12-11] MEDS: THIAMINE HCL 100 MG TABLET (FP) PO SCH (22:10)
[2020-12-11] MEDS: ACETAMINOPHEN 325 MG TABLET (FP) PO PRN (22:11)
[2020-12-12] MEDS ORDERED: chlordiazePOXIDE HCL 10 MG CAPSULE PO PRN
[2020-12-12] MEDS: chlordiazePOXIDE HCL 10 MG CAPSULE PO SCH ×4 (05:41→22:11)
[2020-12-12] MEDS: ACETAMINOPHEN 325 MG TABLET (FP) PO PRN ×2 (05:42→17:32)
[2020-12-12] MEDS: HYDROCHLOROTHIAZIDE 25 MG TABLET (FP) PO SCH (10:16)
[2020-12-12] MEDS: NICOTINE 21 MG/24 HOURS TOPICAL PATCH TD SCH (10:17)
[2020-12-12] MEDS: guaiFENesin 600 MG TABLET.ER (FP) PO SCH ×2 (10:17→22:12)
[2020-12-12] MEDS: AMMONIUM LACTATE 12% LOTION 225 GM BOTTLE TP SCH ×2 (10:18→22:12)
[2020-12-12] MEDS: PRENATAL VITAMINS W/ FOLIC ACID TABLET (FP) PO SCH (10:18)
[2020-12-12] MEDS ORDERED: LOPERAMIDE HCL 2 MG CAPSULE PO PRN (11:29)
[2020-12-12 11:41] LABS: POTASSIUM 4.2 mmol/L (3.5-5.1)
[2020-12-12 11:46] LABS: CALCIUM 8.7 mg/dL (8.5-10.1)
[2020-12-12 11:47] LABS: BLOOD UREA NITROGEN 17.4 mg/dL (7-18)
[2020-12-12 11:50] LABS: CREATININE 0.7 mg/dL (0.55-1.3)
[2020-12-12] MEDS: METHOCARBAMOL 500 MG TABLET PO PRN (17:32)
[2020-12-12] MEDS: MELATONIN 5 MG TABLETS PO SCH (22:11)
[2020-12-12] MEDS: THIAMINE HCL 100 MG TABLET (FP) PO SCH (22:12)
[2020-12-13] MEDS: ACETAMINOPHEN 325 MG TABLET (FP) PO PRN (05:24)
[2020-12-13] MEDS: chlordiazePOXIDE HCL 10 MG CAPSULE PO SCH ×2 (05:26→19:03)
[2020-12-13] MEDS: guaiFENesin 600 MG TABLET.ER (FP) PO SCH ×2 (10:00→22:43)
[2020-12-13] MEDS: HYDROCHLOROTHIAZIDE 25 MG TABLET (FP) PO SCH (10:00)
[2020-12-13] MEDS: PRENATAL VITAMINS W/ FOLIC ACID TABLET (FP) PO SCH (10:01)
[2020-12-13] MEDS: NICOTINE 21 MG/24 HOURS TOPICAL PATCH TD SCH (10:01)
[2020-12-13] MEDS: AMMONIUM LACTATE 12% LOTION 225 GM BOTTLE TP SCH ×2 (11:31→22:45)
[2020-12-13] MEDS: METHOCARBAMOL 500 MG TABLET PO PRN (17:36)
[2020-12-13] MEDS: MELATONIN 5 MG TABLETS PO SCH (22:43)
[2020-12-13] MEDS: THIAMINE HCL 100 MG TABLET (FP) PO SCH (22:43)
[2020-12-14] MEDS ORDERED: chlordiazePOXIDE HCL 10 MG CAPSULE PO ONE (05:00)
[2020-12-14] MEDS: ACETAMINOPHEN 325 MG TABLET (FP) PO PRN (06:00)
[2020-12-14] MEDS: METHOCARBAMOL 500 MG TABLET PO PRN (06:01)
[2020-12-14] MEDS: MENTHOL/PHENOL 1 EACH UD MM PRN (06:07)
[2020-12-14] MEDS ORDERED: MASKS NR ONE (08:13)
[2020-12-14 09:21] VITALS: BP 124/76; PULSE 88; TEMP 98.4
[2020-12-14] MEDS: AMMONIUM LACTATE 12% LOTION 225 GM BOTTLE TP SCH (10:25)
[2020-12-14] MEDS: guaiFENesin 600 MG TABLET.ER (FP) PO SCH (10:25)
[2020-12-14] MEDS: HYDROCHLOROTHIAZIDE 25 MG TABLET (FP) PO SCH (10:25)
[2020-12-14] MEDS: NICOTINE 21 MG/24 HOURS TOPICAL PATCH TD SCH (10:25)
[2020-12-14] MEDS: PRENATAL VITAMINS W/ FOLIC ACID TABLET (FP) PO SCH (10:25)
== END 2020-12-14 11:15 | disposition home or self-care (01) | DRG 774 ==
LOC: YASAS 08:47 → Y6N 11:24
PROVIDERS: ADMIT Allergy & Immunology; ATTEND Allergy & Immunology
PROC: HZ2ZZZZ Detoxification Services for Substance Abuse Treatment (ICD-10-PCS; principal; 2020-12-09)
DX: F10.230 Alcohol dependence with withdrawal, uncomplicated (principal); F14.20 Cocaine dependence, uncomplicated; F12.20 Cannabis dependence, uncomplicated; F17.210 Nicotine dependence, cigarettes, uncomplicated; F31.9 Bipolar disorder, unspecified; F19.280 Other psychoactive substance dependence with psychoactive substance-induced anxiety disorder; F19.282 Other psychoactive substance dependence with psychoactive substance-induced sleep disorder; F19.24 Other psychoactive substance dependence with psychoactive substance-induced mood disorder; F43.10 Post-traumatic stress disorder, unspecified; I10 Essential (primary) hypertension; Z91.410 Personal history of adult physical and sexual abuse; Z86.69 Personal history of other diseases of the nervous system and sense organs; Z86.19 Personal history of other infectious and parasitic diseases; Z88.8 Allergy status to other drugs, medicaments and biological substances; Z59.0 Homelessness; Z56.0 Unemployment, unspecified
CPT/HCPCS: 36415; 80048; 80053; 81025; 85027; 86593; 86780; 87389; C9803; U0003

== ENCOUNTER 2021-01-11 07:22 | Inpatient (IN) | payer OTHER ==
[2021-01-11 10:19] VITALS: BMI 22.8
[2021-01-11] MEDS ORDERED: ACETAMINOPHEN 325 MG TABLET (FP) PO PRN ×2 (10:23)
[2021-01-11] MEDS ORDERED: MAGNESIUM HYDROX 2400MG/30ML ORAL SUSPENSION 30 ML CUP PO PRN (10:23)
[2021-01-11] MEDS ORDERED: MAG HYDROX/AL HYDROX/SIMETH 30 ML UNIT-DOSE CUP PO PRN (10:23)
[2021-01-11] MEDS ORDERED: NICOTINE POLACRILEX 2 MG GUM BUC PRN (10:23)
[2021-01-11] MEDS ORDERED: chlordiazePOXIDE HCL 25 MG CAPSULE PO PRN (10:23)
[2021-01-11] MEDS ORDERED: METHOCARBAMOL 500 MG TABLET PO PRN (10:23)
[2021-01-11] MEDS ORDERED: MENTHOL/PHENOL 1 EACH UD MM PRN (10:23)
[2021-01-11] MEDS ORDERED: MAGNESIUM CITRATE 300 ML BOTTLE PO PRN (10:23)
[2021-01-11] MEDS ORDERED: IBUPROFEN 400 MG TABLET (FP) PO PRN (10:23)
[2021-01-11] MEDS ORDERED: ONDANSETRON *ODT* 4 MG TABLET SL PRN (10:23)
[2021-01-11] MEDS ORDERED: BISMUTH SUBSALICYLATE 262 MG/15 ML BTL PO PRN (10:24)
[2021-01-11] MEDS ORDERED: PENICILLIN G BENZATHINE 1,200,000 UNIT/2 ML PFS IM ONE ×2 (11:19→14:30)
[2021-01-11] MEDS ORDERED: chlordiazePOXIDE HCL 25 MG CAPSULE ONE (11:52)
[2021-01-11] MEDS: HYDROCHLOROTHIAZIDE 25 MG TABLET (FP) PO SCH (11:55)
[2021-01-11] MEDS: chlordiazePOXIDE HCL 25 MG CAPSULE PO SCH ×3 (11:55→22:45)
[2021-01-11] MEDS: NICOTINE 21 MG/24 HOURS TOPICAL PATCH TD SCH (13:10)
[2021-01-11 13:39] LABS: HEMATOCRIT 36.2 % (32.4-45.2); HEMOGLOBIN 11.8 GM/dL (10.7-15.3); MCH 27.9 pg (25.7-33.7); MCHC 32.7 g/dl (32.0-36.0); MEAN CELL VOLUME 85.2 fl (80-96); MEAN PLT VOLUME 8.9 fl (7.5-11.1); PLATELET COUNT 212 K/MM3 (134-434); POTASSIUM 3.9 mmol/L (3.5-5.1); RBC 4.25 M/mm3 (3.60-5.2); RDW 16.1 % (11.6-15.6); WHITE BLOOD COUNT 5.4 K/mm3 (4.0-10.0)
[2021-01-11 13:41] LABS: ALBUMIN 3.5 g/dl (3.4-5.0); BLOOD UREA NITROGEN 18.7 mg/dL (7-18); CALCIUM 9.1 mg/dL (8.5-10.1)
[2021-01-11 13:44] LABS: CREATININE 0.9 mg/dL (0.55-1.3)
[2021-01-11 13:46] LABS: BILIRUBIN,TOTAL 0.2 mg/dL (0.2-1); TOT PROT 7.5 g/dl (6.4-8.2)
[2021-01-11] MEDS: hydrOXYzine PAMOATE 25 MG CAPSULE (FP) PO SCH ×3 (16:06→22:45)
[2021-01-11] MEDS: MELATONIN 5 MG TABLETS PO SCH (22:44)
[2021-01-11] MEDS: QUEtiapine FUMARATE 50 MG TABLET PO SCH (22:44)
[2021-01-11] MEDS: THIAMINE HCL 100 MG TABLET (FP) PO SCH (22:45)
[2021-01-12] MEDS: hydrOXYzine PAMOATE 25 MG CAPSULE (FP) PO SCH ×5 (06:11→22:47)
[2021-01-12] MEDS: chlordiazePOXIDE HCL 25 MG CAPSULE PO SCH ×4 (06:12→22:48)
[2021-01-12] MEDS ORDERED: MASKS NR ONE (06:25)
[2021-01-12] MEDS: NICOTINE 21 MG/24 HOURS TOPICAL PATCH TD SCH (10:31)
[2021-01-12] MEDS: PRENATAL VITAMINS W/ FOLIC ACID TABLET (FP) PO SCH (10:31)
[2021-01-12] MEDS: HYDROCHLOROTHIAZIDE 25 MG TABLET (FP) PO SCH (10:31)
[2021-01-12] MEDS: QUEtiapine FUMARATE 50 MG TABLET PO SCH (22:47)
[2021-01-12] MEDS: THIAMINE HCL 100 MG TABLET (FP) PO SCH (22:48)
[2021-01-12] MEDS: MELATONIN 5 MG TABLETS PO SCH (22:48)
[2021-01-13] MEDS: hydrOXYzine PAMOATE 25 MG CAPSULE (FP) PO SCH ×2 (06:26→10:19)
[2021-01-13] MEDS: chlordiazePOXIDE HCL 25 MG CAPSULE PO SCH ×2 (06:26→10:20)
[2021-01-13] MEDS: HYDROCHLOROTHIAZIDE 25 MG TABLET (FP) PO SCH (10:19)
[2021-01-13] MEDS: PRENATAL VITAMINS W/ FOLIC ACID TABLET (FP) PO SCH (10:19)
[2021-01-13] MEDS: NICOTINE 21 MG/24 HOURS TOPICAL PATCH TD SCH (10:21)
[2021-01-13 10:37] VITALS: BP 119/89; PULSE 80; TEMP 96.8
[2021-01-14] MEDS ORDERED: chlordiazePOXIDE HCL 10 MG CAPSULE PO PRN
[2021-01-14] MEDS ORDERED: chlordiazePOXIDE HCL 10 MG CAPSULE PO SCH (05:00)
[2021-01-15] MEDS ORDERED: chlordiazePOXIDE HCL 10 MG CAPSULE PO SCH (05:00)
[2021-01-16] MEDS ORDERED: chlordiazePOXIDE HCL 10 MG CAPSULE PO ONE (05:00)
== END 2021-01-13 12:20 | disposition left against medical advice (07) | DRG 770 ==
LOC: YASAS 07:22 → Y3N 12:01
PROVIDERS: ADMIT Allergy & Immunology; ATTEND Allergy & Immunology
PROC: HZ2ZZZZ Detoxification Services for Substance Abuse Treatment (ICD-10-PCS; principal; 2021-01-11)
DX: F10.230 Alcohol dependence with withdrawal, uncomplicated (principal); F14.20 Cocaine dependence, uncomplicated; F12.20 Cannabis dependence, uncomplicated; F17.210 Nicotine dependence, cigarettes, uncomplicated; F19.282 Other psychoactive substance dependence with psychoactive substance-induced sleep disorder; F19.24 Other psychoactive substance dependence with psychoactive substance-induced mood disorder; I10 Essential (primary) hypertension; Z86.69 Personal history of other diseases of the nervous system and sense organs; Z86.19 Personal history of other infectious and parasitic diseases; Z91.410 Personal history of adult physical and sexual abuse; Z59.0 Homelessness; Z88.8 Allergy status to other drugs, medicaments and biological substances
CPT/HCPCS: 36415; 80053; 81025; 85027; 86593; 86780; C9803; U0003

== ENCOUNTER 2022-01-16 11:04 | Inpatient (IN) | payer OTHER ==
[2022-01-16] MEDS ORDERED: NICOTINE 10 MG CARTRIDGE (INHALER) IH PRN (12:08)
[2022-01-16] MEDS ORDERED: IBUPROFEN 400 MG TABLET (FP) PO PRN (12:08)
[2022-01-16] MEDS ORDERED: MENTHOL/PHENOL 1 EACH UD MM PRN (12:08)
[2022-01-16] MEDS ORDERED: chlordiazePOXIDE HCL 25 MG CAPSULE PO PRN (12:08)
[2022-01-16] MEDS ORDERED: MAG HYDROX/AL HYDROX/SIMETH 30 ML UNIT-DOSE CUP PO PRN (12:08)
[2022-01-16] MEDS ORDERED: METHOCARBAMOL 500 MG TABLET PO PRN (12:08)
[2022-01-16] MEDS ORDERED: ONDANSETRON *ODT* 4 MG TABLET SL PRN (12:08)
[2022-01-16] MEDS ORDERED: MAGNESIUM HYDROX 2400MG/30ML ORAL SUSPENSION 30 ML CUP PO PRN (12:08)
[2022-01-16] MEDS ORDERED: MAGNESIUM CITRATE 300 ML BOTTLE PO PRN (12:08)
[2022-01-16] MEDS ORDERED: ACETAMINOPHEN 325 MG TABLET (FP) PO PRN ×2 (12:08)
[2022-01-16 12:22] VITALS: BMI 21.4
[2022-01-16] MEDS: hydrOXYzine PAMOATE 25 MG CAPSULE (FP) PO SCH ×3 (14:02→23:07)
[2022-01-16] MEDS: chlordiazePOXIDE HCL 25 MG CAPSULE PO SCH ×4 (14:02→23:58)
[2022-01-16] MEDS: NICOTINE 14 MG/24 HOURS TOPICAL PATCH TD SCH (14:06)
[2022-01-16] MEDS: metroNIDAZOLE 250 MG TABLET PO SCH ×3 (15:03→23:59)
[2022-01-16 16:22] LABS: HEMOGLOBIN 12.2 GM/dL (10.7-15.3); MCH 28.8 pg (25.7-33.7); MEAN CELL VOLUME 87.4 fl (80-96); MEAN PLT VOLUME 9.2 fl (7.5-11.1); PLATELET COUNT 149 10^3/uL (134-434); RBC 4.23 M/mm3 (3.60-5.2); RDW 14.3 % (11.6-15.6); WHITE BLOOD COUNT 2.7 K/mm3 (4.0-10.0)
[2022-01-16 16:23] LABS: CALCIUM 8.8 mg/dL (8.5-10.1)
[2022-01-16 16:24] LABS: ALBUMIN 3.2 g/dl (3.4-5.0); BLOOD UREA NITROGEN 10.3 mg/dL (7-18)
[2022-01-16 16:27] LABS: CREATININE 0.8 mg/dL (0.55-1.3)
[2022-01-16 16:29] LABS: BILIRUBIN,TOTAL 0.3 mg/dL (0.2-1)
[2022-01-16] MEDS: MELATONIN 5 MG TABLETS PO SCH (23:07)
[2022-01-16] MEDS: THIAMINE HCL 100 MG TABLET (FP) PO SCH (23:07)
[2022-01-17] MEDS ORDERED: cloNIDine HCL 0.1 MG TABLET PO ONE
[2022-01-17] MEDS: BISMUTH SUBSALICYLATE 524 MG/30 ML PO PRN
[2022-01-17] MEDS ORDERED: HYDROCHLOROTHIAZIDE 25 MG TABLET (FP) PO ONE (00:05)
[2022-01-17] MEDS: MELATONIN 5 MG TABLETS PO SCH ×2 (00:09→23:26)
[2022-01-17] MEDS: chlordiazePOXIDE HCL 25 MG CAPSULE PO SCH ×4 (07:35→23:27)
[2022-01-17] MEDS: LOPERAMIDE HCL 2 MG CAPSULE PO PRN ×3 (07:37→16:42)
[2022-01-17] MEDS: hydrOXYzine PAMOATE 25 MG CAPSULE (FP) PO SCH ×6 (07:38→23:26)
[2022-01-17] MEDS: metroNIDAZOLE 250 MG TABLET PO SCH ×3 (11:09→23:25)
[2022-01-17] MEDS: HYDROCHLOROTHIAZIDE 25 MG TABLET (FP) PO SCH ×2 (11:09→12:44)
[2022-01-17] MEDS: NICOTINE 14 MG/24 HOURS TOPICAL PATCH TD SCH (11:09)
[2022-01-17 14:08] LABS: SARS-CoV-2 NAA Not Detected (Not Detected)
[2022-01-17] MEDS: PRENATAL VITAMINS W/ FOLIC ACID TABLET (FP) PO SCH (15:44)
[2022-01-17] MEDS: THIAMINE HCL 100 MG TABLET (FP) PO SCH ×2 (23:26)
[2022-01-18] MEDS: hydrOXYzine PAMOATE 25 MG CAPSULE (FP) PO SCH ×5 (06:22→22:23)
[2022-01-18] MEDS: chlordiazePOXIDE HCL 25 MG CAPSULE PO SCH ×4 (06:22→22:23)
[2022-01-18] MEDS: LOPERAMIDE HCL 2 MG CAPSULE PO PRN ×2 (06:23→17:48)
[2022-01-18] MEDS: NICOTINE 14 MG/24 HOURS TOPICAL PATCH TD SCH (11:01)
[2022-01-18] MEDS: HYDROCHLOROTHIAZIDE 25 MG TABLET (FP) PO SCH ×2 (11:01→11:51)
[2022-01-18] MEDS: metroNIDAZOLE 250 MG TABLET PO SCH ×2 (11:01→22:21)
[2022-01-18] MEDS: PRENATAL VITAMINS W/ FOLIC ACID TABLET (FP) PO SCH ×2 (11:02→11:51)
[2022-01-18] MEDS: BISMUTH SUBSALICYLATE 524 MG/30 ML PO PRN (18:12)
[2022-01-18] MEDS: MELATONIN 5 MG TABLETS PO SCH (22:22)
[2022-01-18] MEDS: THIAMINE HCL 100 MG TABLET (FP) PO SCH (22:23)
[2022-01-19] MEDS ORDERED: chlordiazePOXIDE HCL 10 MG CAPSULE PO PRN
[2022-01-19] MEDS: chlordiazePOXIDE HCL 10 MG CAPSULE PO SCH ×4 (07:47→22:58)
[2022-01-19] MEDS: hydrOXYzine PAMOATE 25 MG CAPSULE (FP) PO SCH ×5 (07:48→22:58)
[2022-01-19] MEDS: metroNIDAZOLE 250 MG TABLET PO SCH ×2 (10:44→22:57)
[2022-01-19] MEDS: HYDROCHLOROTHIAZIDE 25 MG TABLET (FP) PO SCH (10:44)
[2022-01-19] MEDS: PRENATAL VITAMINS W/ FOLIC ACID TABLET (FP) PO SCH (10:46)
[2022-01-19] MEDS: NICOTINE 14 MG/24 HOURS TOPICAL PATCH TD SCH (10:47)
[2022-01-19] MEDS: LOPERAMIDE HCL 2 MG CAPSULE PO PRN (15:56)
[2022-01-19] MEDS: THIAMINE HCL 100 MG TABLET (FP) PO SCH (22:57)
[2022-01-19] MEDS: MELATONIN 5 MG TABLETS PO SCH (22:57)
[2022-01-20] MEDS: hydrOXYzine PAMOATE 25 MG CAPSULE (FP) PO SCH ×2 (07:03→10:19)
[2022-01-20] MEDS: chlordiazePOXIDE HCL 10 MG CAPSULE PO SCH ×2 (07:03→17:45)
[2022-01-20] MEDS: metroNIDAZOLE 250 MG TABLET PO SCH (10:20)
[2022-01-20] MEDS: PRENATAL VITAMINS W/ FOLIC ACID TABLET (FP) PO SCH (10:20)
[2022-01-20] MEDS: NICOTINE 14 MG/24 HOURS TOPICAL PATCH TD SCH (10:21)
[2022-01-20] MEDS: HYDROCHLOROTHIAZIDE 25 MG TABLET (FP) PO SCH (10:21)
[2022-01-20] MEDS ORDERED: hydrOXYzine PAMOATE 25 MG CAPSULE (FP) PO PRN (12:27)
[2022-01-20 14:10] LABS: SARS-CoV-2 NAA Not Detected (Not Detected)
[2022-01-20 17:53] VITALS: BP 125/95; PULSE 84; TEMP 97.8
[2022-01-21] MEDS ORDERED: chlordiazePOXIDE HCL 10 MG CAPSULE PO ONE (05:00)
== END 2022-01-20 19:07 | disposition home or self-care (01) | DRG 773 ==
LOC: YASAS 11:04 → Y3N 12:59
PROVIDERS: ADMIT Allergy & Immunology; ATTEND Allergy & Immunology
PROC: HZ2ZZZZ Detoxification Services for Substance Abuse Treatment (ICD-10-PCS; principal; 2022-01-16)
DX: F10.230 Alcohol dependence with withdrawal, uncomplicated (principal); F11.10 Opioid abuse, uncomplicated; F14.20 Cocaine dependence, uncomplicated; F12.20 Cannabis dependence, uncomplicated; F17.213 Nicotine dependence, cigarettes, with withdrawal; F31.9 Bipolar disorder, unspecified; D72.819 Decreased white blood cell count, unspecified; I10 Essential (primary) hypertension; Z91.410 Personal history of adult physical and sexual abuse; Z86.19 Personal history of other infectious and parasitic diseases; Z88.8 Allergy status to other drugs, medicaments and biological substances; Z59.00 Homelessness unspecified; Z56.0 Unemployment, unspecified
CPT/HCPCS: 36415; 80053; 81025; 85027; 86593; 86780; C9803; Q0162; U0003; U0005

== ENCOUNTER 2022-12-15 09:07 | Inpatient (IN) | payer OTHER ==
[2022-12-15 09:37] VITALS: BMI 23.8
[2022-12-15] MEDS ORDERED: ACETAMINOPHEN 325 MG TABLET (FP) PO PRN ×2 (10:11)
[2022-12-15] MEDS ORDERED: BISMUTH SUBSALICYLATE 524 MG/30 ML PO PRN (10:11)
[2022-12-15] MEDS ORDERED: IBUPROFEN 400 MG TABLET (FP) PO PRN (10:11)
[2022-12-15] MEDS ORDERED: NALOXONE HCL (KLOXXADO) 8 MG SPRAY NS PRN (10:11)
[2022-12-15] MEDS ORDERED: LOPERAMIDE HCL 2 MG CAPSULE PO PRN (10:11)
[2022-12-15] MEDS ORDERED: NICOTINE POLACRILEX 2 MG GUM BUC PRN (10:11)
[2022-12-15] MEDS ORDERED: hydrOXYzine PAMOATE 25 MG CAPSULE (FP) PO PRN (10:11)
[2022-12-15] MEDS ORDERED: chlordiazePOXIDE HCL 25 MG CAPSULE PO PRN (10:11)
[2022-12-15] MEDS ORDERED: IBUPROFEN 600 MG TABLET (FP) PO PRN (10:11)
[2022-12-15] MEDS ORDERED: ONDANSETRON *ODT* 4 MG TABLET SL PRN (10:11)
[2022-12-15] MEDS ORDERED: NICOTINE 10 MG CARTRIDGE (INHALER) IH PRN (10:11)
[2022-12-15] MEDS ORDERED: MAG HYDROX/AL HYDROX/SIMETH 30 ML UNIT-DOSE CUP PO PRN (10:11)
[2022-12-15] MEDS ORDERED: MAGNESIUM HYDROX 2400MG/30ML ORAL SUSPENSION 30 ML CUP PO PRN (10:11)
[2022-12-15] MEDS ORDERED: DICYCLOMINE HCL 10 MG CAPSULE PO PRN (10:11)
[2022-12-15] MEDS ORDERED: METHOCARBAMOL 500 MG TABLET PO PRN (10:11)
[2022-12-15] MEDS ORDERED: BENZOCAINE/MENTHOL (CHLORASEPTIC ) LOZENGE MM PRN (10:11)
[2022-12-15] MEDS ORDERED: POLYETHYLENE GLYCOL (HEALTHYLAX) 3350 17 GM PACKET PO PRN (10:11)
[2022-12-15] MEDS: chlordiazePOXIDE HCL 25 MG CAPSULE PO SCH ×3 (10:58→22:38)
[2022-12-15] MEDS ORDERED: chlordiazePOXIDE HCL 25 MG CAPSULE ONE (10:59)
[2022-12-15] MEDS: VITAMINS A AND D TOPICAL OINTMENT 60 GM TUBE TP SCH ×3 (13:18→23:22)
[2022-12-15] MEDS: HYDROCHLOROTHIAZIDE 25 MG TABLET (FP) PO SCH (15:01)
[2022-12-15] MEDS: MELATONIN 5 MG TABLETS PO SCH (22:36)
[2022-12-15] MEDS: THIAMINE HCL 100 MG TABLET (FP) PO SCH (22:36)
[2022-12-16] MEDS: chlordiazePOXIDE HCL 25 MG CAPSULE PO SCH ×4 (05:43→23:58)
[2022-12-16] MEDS: VITAMINS A AND D TOPICAL OINTMENT 60 GM TUBE TP SCH ×3 (05:44→17:19)
[2022-12-16] MEDS: PRENATAL VITAMINS W/ FOLIC ACID TABLET (FP) PO SCH (10:11)
[2022-12-16] MEDS: HYDROCHLOROTHIAZIDE 25 MG TABLET (FP) PO SCH (10:14)
[2022-12-16 14:55] LABS: HEMATOCRIT 35.4 % (32.4-45.2); HEMOGLOBIN 11.4 GM/dL (10.7-15.3); MCH 27.9 pg (25.7-33.7); MCHC 32.3 g/dl (32.0-36.0); MEAN CELL VOLUME 86.3 fl (80-96); MEAN PLT VOLUME 9.5 fl (7.5-11.1); PLATELET COUNT 219 10^3/uL (134-434); WHITE BLOOD COUNT 4.3 K/mm3 (4.0-10.0)
[2022-12-16 15:08] LABS: CALCIUM 8.7 mg/dL (8.5-10.1)
[2022-12-16 15:09] LABS: ALBUMIN 3.1 g/dl (3.4-5.0); BLOOD UREA NITROGEN 20.1 mg/dL (7-18)
[2022-12-16 15:12] LABS: CREATININE 0.8 mg/dL (0.55-1.3)
[2022-12-16 15:13] LABS: BILIRUBIN,TOTAL 0.2 mg/dL (0.2-1); TOT PROT 6.8 g/dl (6.4-8.2)
[2022-12-16] MEDS: MELATONIN 5 MG TABLETS PO SCH (22:47)
[2022-12-16] MEDS: THIAMINE HCL 100 MG TABLET (FP) PO SCH (22:48)
[2022-12-17] MEDS: VITAMINS A AND D TOPICAL OINTMENT 60 GM TUBE TP SCH ×4 (00:01→17:31)
[2022-12-17] MEDS: chlordiazePOXIDE HCL 25 MG CAPSULE PO SCH ×4 (06:09→22:12)
[2022-12-17] MEDS: PRENATAL VITAMINS W/ FOLIC ACID TABLET (FP) PO SCH (10:38)
[2022-12-17] MEDS: HYDROCHLOROTHIAZIDE 25 MG TABLET (FP) PO SCH (10:44)
[2022-12-17] MEDS: THIAMINE HCL 100 MG TABLET (FP) PO SCH (22:10)
[2022-12-17] MEDS: MELATONIN 5 MG TABLETS PO SCH (22:10)
[2022-12-18] MEDS ORDERED: chlordiazePOXIDE HCL 10 MG CAPSULE PO PRN
[2022-12-18] MEDS: VITAMINS A AND D TOPICAL OINTMENT 60 GM TUBE TP SCH ×2 (02:11→05:22)
[2022-12-18] MEDS: chlordiazePOXIDE HCL 10 MG CAPSULE PO SCH ×2 (05:22→10:49)
[2022-12-18 06:42] VITALS: RESP 18
[2022-12-18 10:10] VITALS: BP 155/95; PULSE 101; TEMP 98.7
[2022-12-18] MEDS: HYDROCHLOROTHIAZIDE 25 MG TABLET (FP) PO SCH (10:49)
[2022-12-18] MEDS: PRENATAL VITAMINS W/ FOLIC ACID TABLET (FP) PO SCH (10:49)
[2022-12-19] MEDS ORDERED: chlordiazePOXIDE HCL 10 MG CAPSULE PO SCH (05:00)
[2022-12-20] MEDS ORDERED: chlordiazePOXIDE HCL 10 MG CAPSULE PO ONE (05:00)
== END 2022-12-18 10:00 | disposition home or self-care (01) | DRG 774 ==
LOC: YASAS 09:07 → Y6N 10:54
PROVIDERS: ADMIT Allergy & Immunology; ATTEND Surgery
PROC: HZ2ZZZZ Detoxification Services for Substance Abuse Treatment (ICD-10-PCS; principal; 2022-12-15)
DX: F10.230 Alcohol dependence with withdrawal, uncomplicated (principal); F14.20 Cocaine dependence, uncomplicated; F17.213 Nicotine dependence, cigarettes, with withdrawal; F31.75 Bipolar disorder, in partial remission, most recent episode depressed; F43.10 Post-traumatic stress disorder, unspecified; I10 Essential (primary) hypertension; Z86.19 Personal history of other infectious and parasitic diseases; Z88.8 Allergy status to other drugs, medicaments and biological substances
CPT/HCPCS: 36415; 80053; 81025; 85027; 86593; 86780; 87491; 87591; 87661; 87811; C9803-CS; U0003; U0005

== ENCOUNTER 2023-03-04 21:45 | Inpatient (IN) | payer OTHER ==
[2023-03-04 22:45] VITALS: BMI 21.2
[2023-03-04] MEDS ORDERED: IBUPROFEN 400 MG TABLET (FP) PO PRN (23:57)
[2023-03-04] MEDS ORDERED: BISMUTH SUBSALICYLATE 524 MG/30 ML PO PRN (23:57)
[2023-03-04] MEDS ORDERED: POLYETHYLENE GLYCOL (HEALTHYLAX) 3350 17 GM PACKET PO PRN (23:57)
[2023-03-04] MEDS ORDERED: BENZOCAINE/MENTHOL (CHLORASEPTIC ) LOZENGE MM PRN (23:57)
[2023-03-04] MEDS ORDERED: P-EPHED 60MG/TRIPROLIDI 2.5MG TABLET PO PRN (23:57)
[2023-03-04] MEDS ORDERED: ONDANSETRON *ODT* 4 MG TABLET SL PRN (23:57)
[2023-03-04] MEDS ORDERED: MAGNESIUM HYDROX 2400MG/30ML ORAL SUSPENSION 30 ML CUP PO PRN (23:57)
[2023-03-04] MEDS ORDERED: DICYCLOMINE HCL 10 MG CAPSULE PO PRN (23:57)
[2023-03-04] MEDS ORDERED: guaiFENesin 600 MG TABLET.ER (FP) PO PRN (23:57)
[2023-03-04] MEDS ORDERED: ACETAMINOPHEN 325 MG TABLET (FP) PO PRN (23:57)
[2023-03-04] MEDS ORDERED: hydrOXYzine PAMOATE 25 MG CAPSULE (FP) PO PRN (23:57)
[2023-03-04] MEDS ORDERED: MAG HYDROX/AL HYDROX/SIMETH 30 ML UNIT-DOSE CUP PO PRN (23:57)
[2023-03-04] MEDS ORDERED: LOPERAMIDE HCL 2 MG CAPSULE PO PRN (23:57)
[2023-03-04] MEDS ORDERED: NICOTINE POLACRILEX 2 MG GUM BUC PRN (23:57)
[2023-03-04] MEDS ORDERED: IBUPROFEN 600 MG TABLET (FP) PO PRN (23:57)
[2023-03-04] MEDS ORDERED: BENZONATATE 200 MG CAPSULE PO PRN (23:57)
[2023-03-05] MEDS: diazePAM 5 MG TABLET PO PRN (00:55)
[2023-03-05] MEDS: diazePAM 5 MG TABLET PO SCH ×4 (05:27→22:36)
[2023-03-05] MEDS: PRENATAL VITAMINS W/ FOLIC ACID TABLET (FP) PO SCH (10:40)
[2023-03-05] MEDS: HYDROCHLOROTHIAZIDE 25 MG TABLET (FP) PO SCH (10:40)
[2023-03-05 10:51] LABS: HEMATOCRIT 34.9 % (32.4-45.2); HEMOGLOBIN 11.6 GM/dL (10.7-15.3); MCH 28.4 pg (25.7-33.7); MCHC 33.2 g/dl (32.0-36.0); MEAN CELL VOLUME 85.3 fl (80-96); MEAN PLT VOLUME 9.5 fl (7.5-11.1); PLATELET COUNT 179 10^3/uL (134-434); RBC 4.09 M/mm3 (3.60-5.2); RDW 14.4 % (11.6-15.6); WHITE BLOOD COUNT 2.8 K/mm3 (4.0-10.0)
[2023-03-05 11:35] LABS: ALBUMIN 2.8 g/dl (3.4-5.0); BLOOD UREA NITROGEN 15.7 mg/dL (7-18); CALCIUM 8.4 mg/dL (8.5-10.1)
[2023-03-05 11:39] LABS: CREATININE 0.8 mg/dL (0.55-1.3)
[2023-03-05 11:40] LABS: BILIRUBIN,TOTAL 0.5 mg/dL (0.2-1); TOT PROT 6.2 g/dl (6.4-8.2)
[2023-03-05 19:16] LABS: HIV INTERPRETATION NEGATIVE (NEGATIVE)
[2023-03-05] MEDS: THIAMINE HCL 100 MG TABLET (FP) PO SCH (22:35)
[2023-03-05] MEDS: MELATONIN 5 MG TABLETS PO PRN (22:36)
[2023-03-06] MEDS: diazePAM 5 MG TABLET PO SCH ×3 (05:47→22:31)
[2023-03-06] MEDS: HYDROCHLOROTHIAZIDE 25 MG TABLET (FP) PO SCH (10:41)
[2023-03-06] MEDS: PRENATAL VITAMINS W/ FOLIC ACID TABLET (FP) PO SCH (10:41)
[2023-03-06] MEDS: diazePAM 5 MG TABLET PO PRN (10:42)
[2023-03-06] MEDS: METHOCARBAMOL 500 MG TABLET PO PRN (13:56)
[2023-03-06] MEDS: THIAMINE HCL 100 MG TABLET (FP) PO SCH (22:31)
[2023-03-07] MEDS: METHOCARBAMOL 500 MG TABLET PO PRN ×2 (05:24→22:41)
[2023-03-07] MEDS: diazePAM 5 MG TABLET PO SCH ×2 (05:24→17:50)
[2023-03-07] MEDS: HYDROCHLOROTHIAZIDE 25 MG TABLET (FP) PO SCH (10:29)
[2023-03-07] MEDS: PRENATAL VITAMINS W/ FOLIC ACID TABLET (FP) PO SCH (10:29)
[2023-03-07] MEDS: THIAMINE HCL 100 MG TABLET (FP) PO SCH (22:36)
[2023-03-07] MEDS: MELATONIN 5 MG TABLETS PO PRN (22:37)
[2023-03-07] MEDS: diazePAM 5 MG TABLET PO PRN (22:39)
[2023-03-08] MEDS: METHOCARBAMOL 500 MG TABLET PO PRN (05:24)
[2023-03-08] MEDS ORDERED: diazePAM 5 MG TABLET PO ONE (06:00)
[2023-03-08 09:27] VITALS: BP 139/97; PULSE 101; RESP 20; TEMP 97.3
[2023-03-08] MEDS: PRENATAL VITAMINS W/ FOLIC ACID TABLET (FP) PO SCH (10:25)
[2023-03-08] MEDS: HYDROCHLOROTHIAZIDE 25 MG TABLET (FP) PO SCH (10:25)
== END 2023-03-08 10:30 | disposition home or self-care (01) | DRG 774 ==
LOC: YASAS 21:45 → Y6N 23:51
PROVIDERS: ADMIT Allergy & Immunology; ATTEND Surgery
PROC: HZ2ZZZZ Detoxification Services for Substance Abuse Treatment (ICD-10-PCS; principal; 2023-03-04)
DX: F10.230 Alcohol dependence with withdrawal, uncomplicated (principal); F14.20 Cocaine dependence, uncomplicated; F12.20 Cannabis dependence, uncomplicated; F17.210 Nicotine dependence, cigarettes, uncomplicated; F31.9 Bipolar disorder, unspecified; I10 Essential (primary) hypertension; Z86.19 Personal history of other infectious and parasitic diseases; Z88.8 Allergy status to other drugs, medicaments and biological substances
CPT/HCPCS: 36415; 80053; 81025; 85027; 86593; 86780; 87389; C9803-CS; U0003; U0005

== ENCOUNTER 2023-05-16 09:15 | Inpatient (IN) | payer OTHER ==
[2023-05-16 09:42] VITALS: BMI 22.3
[2023-05-16] MEDS ORDERED: DICYCLOMINE HCL 10 MG CAPSULE PO PRN (10:24)
[2023-05-16] MEDS ORDERED: ONDANSETRON *ODT* 4 MG TABLET SL PRN (10:24)
[2023-05-16] MEDS ORDERED: NICOTINE POLACRILEX 2 MG GUM BUC PRN (10:24)
[2023-05-16] MEDS ORDERED: NICOTINE 10 MG CARTRIDGE (INHALER) IH PRN (10:24)
[2023-05-16] MEDS ORDERED: NALOXONE HCL (KLOXXADO) 8 MG SPRAY NS PRN (10:24)
[2023-05-16] MEDS ORDERED: MAGNESIUM HYDROX 2400MG/30ML ORAL SUSPENSION 30 ML CUP PO PRN (10:24)
[2023-05-16] MEDS ORDERED: BISMUTH SUBSALICYLATE 524 MG/30 ML PO PRN (10:24)
[2023-05-16] MEDS ORDERED: POLYETHYLENE GLYCOL (HEALTHYLAX) 3350 17 GM PACKET PO PRN (10:24)
[2023-05-16] MEDS ORDERED: BENZOCAINE/MENTHOL (CHLORASEPTIC ) LOZENGE MM PRN (10:24)
[2023-05-16] MEDS ORDERED: IBUPROFEN 400 MG TABLET (FP) PO PRN (10:24)
[2023-05-16] MEDS ORDERED: AMMONIUM LACTATE 12% LOTION 225 GM BOTTLE TP PRN (10:24)
[2023-05-16] MEDS ORDERED: MAG HYDROX/AL HYDROX/SIMETH 30 ML UNIT-DOSE CUP PO PRN (10:24)
[2023-05-16] MEDS ORDERED: ACETAMINOPHEN 325 MG TABLET (FP) PO PRN (10:24)
[2023-05-16] MEDS ORDERED: BENZONATATE 200 MG CAPSULE PO PRN (10:24)
[2023-05-16] MEDS ORDERED: IBUPROFEN 600 MG TABLET (FP) PO PRN (10:24)
[2023-05-16] MEDS ORDERED: guaiFENesin 600 MG TABLET.ER (FP) PO PRN (10:24)
[2023-05-16] MEDS ORDERED: LOPERAMIDE HCL 2 MG CAPSULE PO PRN (10:24)
[2023-05-16] MEDS ORDERED: NALOXONE HCL 0.4 MG/ML VIAL IM PRN (10:24)
[2023-05-16] MEDS ORDERED: COLLOIDAL OATMEAL 1 BAR EACH TP PRN (10:24)
[2023-05-16] MEDS ORDERED: metroNIDAZOLE 0.75% VAGINAL GEL 70 GM TUBE VG ONE ×2 (10:31→17:00)
[2023-05-16] MEDS ORDERED: diazePAM 5 MG TABLET ONE (11:03)
[2023-05-16] MEDS: diazePAM 5 MG TABLET PO SCH ×3 (11:06→22:39)
[2023-05-16] MEDS: NICOTINE 14 MG/24 HOURS TOPICAL PATCH TD SCH (11:11)
[2023-05-16] MEDS ORDERED: PRENATAL VITAMINS W/ FOLIC ACID TABLET (FP) PO ONE (11:12)
[2023-05-16] MEDS: PRENATAL VITAMINS W/ FOLIC ACID TABLET (FP) PO SCH (11:14)
[2023-05-16] MEDS: VITAMINS A AND D TOPICAL OINTMENT 60 GM TUBE TP SCH ×2 (13:05→17:44)
[2023-05-16 15:55] LABS: HEMATOCRIT 38.3 % (32.4-45.2); HEMOGLOBIN 11.9 GM/dL (10.7-15.3); MCH 28.2 pg (25.7-33.7); MCHC 31.2 g/dl (32.0-36.0); MEAN CELL VOLUME 90.3 fl (80-96); MEAN PLT VOLUME 9.5 fl (7.5-11.1); PLATELET COUNT 258 10^3/uL (134-434); RBC 4.24 M/mm3 (3.60-5.2); RDW 14.7 % (11.6-15.6); WHITE BLOOD COUNT 4.2 K/mm3 (4.0-10.0)
[2023-05-16 15:56] LABS: POTASSIUM 3.8 mmol/L (3.5-5.1)
[2023-05-16 15:57] LABS: CALCIUM 9.2 mg/dL (8.5-10.1)
[2023-05-16 15:58] LABS: ALBUMIN 3.1 g/dl (3.4-5.0); BLOOD UREA NITROGEN 11.9 mg/dL (7-18)
[2023-05-16 16:01] LABS: CREATININE 0.8 mg/dL (0.55-1.3)
[2023-05-16 16:03] LABS: BILIRUBIN,TOTAL 0.2 mg/dL (0.2-1); TOT PROT 7.1 g/dl (6.4-8.2)
[2023-05-16] MEDS ORDERED: metroNIDAZOLE 0.75% VAGINAL GEL 70 GM TUBE VG SCH (18:53)
[2023-05-16] MEDS: THIAMINE HCL 100 MG TABLET (FP) PO SCH (22:38)
[2023-05-16] MEDS: METHOCARBAMOL 500 MG TABLET PO PRN (22:38)
[2023-05-16] MEDS: MELATONIN 5 MG TABLETS PO SCH (22:38)
[2023-05-16] MEDS: metroNIDAZOLE 0.75% VAGINAL GEL 70 GM TUBE VG SCH (22:43)
[2023-05-17] MEDS: VITAMINS A AND D TOPICAL OINTMENT 60 GM TUBE TP SCH ×5 (01:57→23:03)
[2023-05-17] MEDS: hydrOXYzine PAMOATE 25 MG CAPSULE (FP) PO PRN ×2 (05:30→17:20)
[2023-05-17] MEDS: diazePAM 5 MG TABLET PO SCH ×4 (05:30→22:10)
[2023-05-17] MEDS: METHOCARBAMOL 500 MG TABLET PO PRN ×2 (05:30→17:20)
[2023-05-17] MEDS: PRENATAL VITAMINS W/ FOLIC ACID TABLET (FP) PO SCH (10:52)
[2023-05-17] MEDS: NICOTINE 14 MG/24 HOURS TOPICAL PATCH TD SCH (10:54)
[2023-05-17] MEDS ORDERED: cloNIDine HCL 0.1 MG TABLET PO PRN (16:45)
[2023-05-17] MEDS ORDERED: amLODIPine BESYLATE 10 MG TABLET (FP) PO ONE (21:56)
[2023-05-17] MEDS: THIAMINE HCL 100 MG TABLET (FP) PO SCH (22:09)
[2023-05-17] MEDS: MELATONIN 5 MG TABLETS PO SCH (22:09)
[2023-05-17] MEDS: metroNIDAZOLE 0.75% VAGINAL GEL 70 GM TUBE VG SCH (22:11)
[2023-05-18] MEDS: diazePAM 5 MG TABLET PO SCH ×3 (05:39→21:29)
[2023-05-18] MEDS: METHOCARBAMOL 500 MG TABLET PO PRN ×2 (05:41→21:28)
[2023-05-18] MEDS: VITAMINS A AND D TOPICAL OINTMENT 60 GM TUBE TP SCH ×5 (06:00→23:24)
[2023-05-18] MEDS: PRENATAL VITAMINS W/ FOLIC ACID TABLET (FP) PO SCH (10:25)
[2023-05-18] MEDS: NICOTINE 14 MG/24 HOURS TOPICAL PATCH TD SCH (10:25)
[2023-05-18] MEDS: MELATONIN 5 MG TABLETS PO SCH (21:25)
[2023-05-18] MEDS: THIAMINE HCL 100 MG TABLET (FP) PO SCH (21:25)
[2023-05-18] MEDS: metroNIDAZOLE 0.75% VAGINAL GEL 70 GM TUBE VG SCH (21:27)
[2023-05-18] MEDS: hydrOXYzine PAMOATE 25 MG CAPSULE (FP) PO PRN (21:28)
[2023-05-19] MEDS: diazePAM 5 MG TABLET PO SCH ×2 (05:55→17:32)
[2023-05-19] MEDS: VITAMINS A AND D TOPICAL OINTMENT 60 GM TUBE TP SCH ×3 (05:55→17:35)
[2023-05-19] MEDS: METHOCARBAMOL 500 MG TABLET PO PRN (05:58)
[2023-05-19] MEDS ORDERED: amLODIPine BESYLATE 10 MG TABLET (FP) PO SCH (07:00)
[2023-05-19] MEDS ORDERED: ACYCLOVIR 400 MG TABLET PO ONE ×2 (09:15→19:15)
[2023-05-19] MEDS: NICOTINE 14 MG/24 HOURS TOPICAL PATCH TD SCH (10:24)
[2023-05-19] MEDS: PRENATAL VITAMINS W/ FOLIC ACID TABLET (FP) PO SCH (10:24)
[2023-05-19] MEDS ORDERED: ACYCLOVIR 400 MG TABLET PO SCH (14:00)
[2023-05-19] MEDS: hydrOXYzine PAMOATE 25 MG CAPSULE (FP) PO PRN (17:34)
[2023-05-19 18:02] VITALS: BP 161/98; PULSE 83; RESP 18; TEMP 97.3
[2023-05-19] MEDS ORDERED: cloNIDine HCL 0.1 MG TABLET PO PRN (18:13)
[2023-05-19] MEDS ORDERED: metroNIDAZOLE 0.75% VAGINAL GEL 70 GM TUBE VG SCH (19:15)
[2023-05-20] MEDS ORDERED: diazePAM 5 MG TABLET PO ONE (06:00)
== END 2023-05-19 19:42 | disposition other institution (70) | DRG 774 ==
LOC: YASAS 09:15 → Y3N 10:43
PROVIDERS: ADMIT Allergy & Immunology; ATTEND Surgery
PROC: HZ2ZZZZ Detoxification Services for Substance Abuse Treatment (ICD-10-PCS; principal; 2023-05-16)
DX: F10.230 Alcohol dependence with withdrawal, uncomplicated (principal); F14.20 Cocaine dependence, uncomplicated; F12.20 Cannabis dependence, uncomplicated; F17.210 Nicotine dependence, cigarettes, uncomplicated; I10 Essential (primary) hypertension; N76.0 Acute vaginitis; B00.9 Herpesviral infection, unspecified; Z86.19 Personal history of other infectious and parasitic diseases; Z88.8 Allergy status to other drugs, medicaments and biological substances
CPT/HCPCS: 36415; 80053; 81025; 85027; 87635; 87811

== ENCOUNTER 2024-04-14 10:40 | Inpatient (IN) | payer OTHER ==
[2024-04-14 11:24] VITALS: BMI 22.8
[2024-04-14] MEDS ORDERED: METHOCARBAMOL 500 MG TABLET PO PRN (11:59)
[2024-04-14] MEDS ORDERED: MAG HYDROX/AL HYDROX/SIMETH 30 ML UNIT-DOSE CUP PO PRN (11:59)
[2024-04-14] MEDS ORDERED: NICOTINE POLACRILEX 2 MG GUM BUC PRN (11:59)
[2024-04-14] MEDS ORDERED: BISMUTH SUBSALICYLATE 524 MG/30 ML PO PRN (11:59)
[2024-04-14] MEDS ORDERED: NALOXONE (NARCAN) HCL 4 MG/0.1 ML SPRAY NS PRN (11:59)
[2024-04-14] MEDS ORDERED: guaiFENesin 600 MG TABLET.ER (FP) PO PRN (11:59)
[2024-04-14] MEDS ORDERED: DICYCLOMINE HCL 10 MG CAPSULE PO PRN (11:59)
[2024-04-14] MEDS ORDERED: IBUPROFEN 400 MG TABLET (FP) PO PRN ×2 (11:59→12:19)
[2024-04-14] MEDS ORDERED: BENZONATATE 200 MG CAPSULE PO PRN (11:59)
[2024-04-14] MEDS ORDERED: NALOXONE HCL 0.4 MG/ML VIAL IM PRN (11:59)
[2024-04-14] MEDS ORDERED: POLYETHYLENE GLYCOL (HEALTHYLAX) 3350 17 GM PACKET PO PRN (11:59)
[2024-04-14] MEDS ORDERED: MAGNESIUM HYDROX 2400MG/30ML ORAL SUSPENSION 30 ML CUP PO PRN (11:59)
[2024-04-14] MEDS ORDERED: ONDANSETRON *ODT* 4 MG TABLET SL PRN (11:59)
[2024-04-14] MEDS: diazePAM 5 MG TABLET PO ONE (12:54)
[2024-04-14] MEDS: PRENATAL VITAMINS W/ FOLIC ACID TABLET (FP) PO SCH (13:38)
[2024-04-14] MEDS: BUPRENORPHINE/NALOXONE 8 MG/2 MG FILM PACKET SL SCH (13:47)
[2024-04-14] MEDS: PENICILLIN G BENZATHINE 2,400,000 UNIT/4 ML PFS IM ONE (15:19)
[2024-04-14] MEDS ORDERED: DOXYCYCLINE HYCLATE 100 MG TABLET PO SCH (18:00)
[2024-04-14] MEDS: diazePAM 5 MG TABLET PO SCH (18:09)
[2024-04-14] MEDS: DOXYCYCLINE PO SCH (18:10)
[2024-04-14] MEDS: MELATONIN 5 MG TABLETS PO SCH (22:17)
[2024-04-14] MEDS: THIAMINE 100 MG TABLET PO SCH (22:17)
[2024-04-15 10:52] LABS: CHLORIDE 106 mmol/L (98-107); POTASSIUM 4.1 mmol/L (3.5-5.1); SODIUM 138 mmol/L (136-145)
[2024-04-15 10:57] LABS: HEMATOCRIT 36.5 % (32.4-45.2); HEMOGLOBIN 11.8 GM/dL (10.7-15.3); MCH 27.5 pg (25.7-33.7); MCHC 32.4 g/dl (32.0-36.0); MEAN CELL VOLUME 85.1 fl (80-96); PLATELET COUNT 183 10^3/uL (134-434); RBC 4.29 M/mm3 (3.60-5.2); RDW 14.5 % (11.6-15.6)
[2024-04-15 11:01] LABS: CALCIUM 8.6 mg/dL (8.5-10.1)
[2024-04-15 11:02] LABS: ALBUMIN 2.8 g/dl (3.4-5.0); ANION GAP 7 mmol/L (4-13); BLOOD UREA NITROGEN 23.9 mg/dL (7-18); CO2 25 mmol/L (21-32); GLUCOSE,RANDOM 102 mg/dL (74-106)
[2024-04-15 11:05] LABS: CREATININE 0.8 mg/dL (0.55-1.3); SGOT/AST 29 U/L (15-37); SGPT/ALT 36 U/L (13-61)
[2024-04-15 11:07] LABS: BILIRUBIN,TOTAL 0.5 mg/dL (0.2-1); TOT PROT 5.7 g/dl (6.4-8.2)
[2024-04-15 11:08] LABS: ALK PHOS 59 U/L (45-117)
[2024-04-15] MEDS: PENICILLIN G BENZATHINE 2,400,000 UNIT/4 ML PFS IM ONE (11:13)
[2024-04-15] MEDS: LOPERAMIDE HCL 2 MG CAPSULE PO PRN (20:46)
[2024-04-15] MEDS: hydrOXYzine PAMOATE 25 MG CAPSULE (FP) PO PRN (23:04)
[2024-04-15] MEDS: ACETAMINOPHEN 325 MG TABLET (FP) PO PRN (23:04)
[2024-04-15] MEDS ORDERED: BENZOCAINE 20 % GEL TUBE MM PRN (23:24)
[2024-04-16] MEDS: VITAMINS A AND D TOPICAL OINTMENT TP SCH (00:56)
[2024-04-16] MEDS: diazePAM 5 MG TABLET PO SCH (05:47)
[2024-04-16] MEDS: BENZOCAINE/MENTHOL (CHLORASEPTIC ) LOZENGE MM PRN (05:54)
[2024-04-16] MEDS: IBUPROFEN 600 MG TABLET (FP) PO PRN (10:10)
[2024-04-16 12:33] LABS: HIV INTERPRETATION NEGATIVE (NEGATIVE)
[2024-04-16] MEDS: diazePAM 5 MG TABLET PO PRN (17:44)
[2024-04-16] MEDS: HYDROCHLOROTHIAZIDE 25 MG TABLET (FP) PO ONE (23:37)
[2024-04-17] MEDS: diazePAM 5 MG TABLET PO SCH (05:21)
[2024-04-17] MEDS: HYDROCHLOROTHIAZIDE 25 MG TABLET (FP) PO PRN (09:42)
[2024-04-17] MEDS: amLODIPine BESYLATE 10 MG TABLET (FP) PO SCH (09:43)
[2024-04-17 11:05] VITALS: BP 181/165; PULSE 117; RESP 18; TEMP 97.1
[2024-04-18] MEDS ORDERED: diazePAM 5 MG TABLET PO ONE (06:00)
== END 2024-04-17 15:13 | disposition home or self-care (01) | DRG 774 ==
LOC: YASAS 10:40 → Y6N 12:27
PROVIDERS: ADMIT Allergy & Immunology; ATTEND Surgery
PROC: HZ2ZZZZ Detoxification Services for Substance Abuse Treatment (ICD-10-PCS; principal; 2024-04-14)
DX: F10.230 Alcohol dependence with withdrawal, uncomplicated (principal); F14.20 Cocaine dependence, uncomplicated; F12.20 Cannabis dependence, uncomplicated; F17.210 Nicotine dependence, cigarettes, uncomplicated; F31.75 Bipolar disorder, in partial remission, most recent episode depressed; A53.9 Syphilis, unspecified; E86.0 Dehydration; I10 Essential (primary) hypertension; H91.93 Unspecified hearing loss, bilateral; R79.89 Other specified abnormal findings of blood chemistry; Z86.59 Personal history of other mental and behavioral disorders; Z88.8 Allergy status to other drugs, medicaments and biological substances
CPT/HCPCS: 36415; 80053; 80305; 80307; 81025; 82140; 85027; 87389; 93005; 93010

== ENCOUNTER 2024-05-05 16:09 | Inpatient (IN) | payer OTHER ==
[2024-05-05 17:26] VITALS: BMI 21.1
[2024-05-05] MEDS ORDERED: LOPERAMIDE HCL 2 MG CAPSULE PO PRN (19:12)
[2024-05-05] MEDS ORDERED: POLYETHYLENE GLYCOL (HEALTHYLAX) 3350 17 GM PACKET PO PRN (19:12)
[2024-05-05] MEDS ORDERED: ONDANSETRON *ODT* 4 MG TABLET SL PRN (19:12)
[2024-05-05] MEDS ORDERED: BENZONATATE 200 MG CAPSULE PO PRN (19:12)
[2024-05-05] MEDS ORDERED: IBUPROFEN 400 MG TABLET (FP) PO PRN (19:12)
[2024-05-05] MEDS ORDERED: NALOXONE (NARCAN) HCL 4 MG/0.1 ML SPRAY NS PRN (19:12)
[2024-05-05] MEDS ORDERED: ACETAMINOPHEN 325 MG TABLET (FP) PO PRN (19:12)
[2024-05-05] MEDS ORDERED: MAGNESIUM HYDROX 2400MG/30ML ORAL SUSPENSION 30 ML CUP PO PRN (19:12)
[2024-05-05] MEDS ORDERED: DICYCLOMINE HCL 10 MG CAPSULE PO PRN (19:12)
[2024-05-05] MEDS ORDERED: guaiFENesin 600 MG TABLET.ER (FP) PO PRN (19:12)
[2024-05-05] MEDS ORDERED: NALOXONE HCL 0.4 MG/ML VIAL IM PRN (19:12)
[2024-05-05] MEDS ORDERED: METHOCARBAMOL 500 MG TABLET PO PRN (19:12)
[2024-05-05] MEDS ORDERED: BISMUTH SUBSALICYLATE 524 MG/30 ML PO PRN (19:12)
[2024-05-05] MEDS ORDERED: MAG HYDROX/AL HYDROX/SIMETH 30 ML UNIT-DOSE CUP PO PRN (19:12)
[2024-05-05] MEDS ORDERED: BENZOCAINE/MENTHOL (CHLORASEPTIC ) LOZENGE MM PRN (19:12)
[2024-05-05] MEDS ORDERED: cloNIDine HCL 0.1 MG TABLET PO PRN (19:30)
[2024-05-05] MEDS ORDERED: amLODIPine BESYLATE 5 MG TABLET (FP) ONE (19:53)
[2024-05-05] MEDS: amLODIPine BESYLATE 5 MG TABLET (FP) PO SCH (21:05)
[2024-05-05] MEDS: metroNIDAZOLE 500 MG TABLET PO SCH (22:55)
[2024-05-05] MEDS: THIAMINE 100 MG TABLET PO SCH (22:55)
[2024-05-05] MEDS: MELATONIN 5 MG TABLETS PO SCH (22:55)
[2024-05-05] MEDS: diazePAM 5 MG TABLET PO SCH (22:55)
[2024-05-06] MEDS: PRENATAL VITAMINS W/ FOLIC ACID TABLET (FP) PO SCH (10:24)
[2024-05-06] MEDS: VITAMINS A AND D TOPICAL OINTMENT TP PRN (12:12)
[2024-05-06] MEDS ORDERED: cloNIDine HCL 0.1 MG TABLET PO PRN (14:33)
[2024-05-06] MEDS: LOSARTAN 50MG/HCTZ 12.5MG 1 TAB PO SCH (18:00)
[2024-05-06] MEDS: hydrOXYzine PAMOATE 25 MG CAPSULE (FP) PO PRN (22:39)
[2024-05-07] MEDS: diazePAM 5 MG TABLET PO SCH (06:26)
[2024-05-07] MEDS: diazePAM 5 MG TABLET PO PRN (10:38)
[2024-05-07] MEDS: metroNIDAZOLE 250 MG TABLET PO SCH (10:44)
[2024-05-07] MEDS: IBUPROFEN 600 MG TABLET (FP) PO PRN (20:37)
[2024-05-08] MEDS: diazePAM 5 MG TABLET PO SCH (06:28)
[2024-05-08 08:59] VITALS: BP 151/90; PULSE 83; RESP 18; TEMP 97.6
[2024-05-09] MEDS ORDERED: diazePAM 5 MG TABLET PO ONE (06:00)
== END 2024-05-08 15:55 | disposition home or self-care (01) | DRG 774 ==
LOC: YASAS 16:09 → Y3N 20:02
PROVIDERS: ADMIT Allergy & Immunology; ATTEND Surgery
PROC: HZ2ZZZZ Detoxification Services for Substance Abuse Treatment (ICD-10-PCS; principal; 2024-05-05)
DX: F10.230 Alcohol dependence with withdrawal, uncomplicated (principal); F14.10 Cocaine abuse, uncomplicated; F12.20 Cannabis dependence, uncomplicated; F17.210 Nicotine dependence, cigarettes, uncomplicated; F31.75 Bipolar disorder, in partial remission, most recent episode depressed; I10 Essential (primary) hypertension; N89.8 Other specified noninflammatory disorders of vagina; Z86.19 Personal history of other infectious and parasitic diseases; Z87.42 Personal history of other diseases of the female genital tract
CPT/HCPCS: 80305; 80307; 81025; 93005; 93010

== ENCOUNTER 2024-08-04 11:32 | Inpatient (IN) | payer OTHER ==
[2024-08-04 12:16] VITALS: BMI 21.5
[2024-08-04] MEDS ORDERED: METHOCARBAMOL 500 MG TABLET PO PRN (12:24)
[2024-08-04] MEDS ORDERED: BENZONATATE 200 MG CAPSULE PO PRN (12:24)
[2024-08-04] MEDS ORDERED: IBUPROFEN 400 MG TABLET (FP) PO PRN (12:24)
[2024-08-04] MEDS ORDERED: POLYETHYLENE GLYCOL (HEALTHYLAX) 3350 17 GM PACKET PO PRN (12:24)
[2024-08-04] MEDS ORDERED: hydrOXYzine PAMOATE 25 MG CAPSULE (FP) PO PRN (12:24)
[2024-08-04] MEDS ORDERED: MAG HYDROX/AL HYDROX/SIMETH 30 ML UNIT-DOSE CUP PO PRN (12:24)
[2024-08-04] MEDS ORDERED: BISMUTH SUBSALICYLATE 524 MG/30 ML PO PRN (12:24)
[2024-08-04] MEDS ORDERED: guaiFENesin 600 MG TABLET.ER (FP) PO PRN (12:24)
[2024-08-04] MEDS ORDERED: NICOTINE POLACRILEX 4 MG LOZENGE BC PRN (12:24)
[2024-08-04] MEDS ORDERED: MAGNESIUM HYDROX 2400MG/30ML ORAL SUSPENSION 30 ML CUP PO PRN (12:24)
[2024-08-04] MEDS ORDERED: LOPERAMIDE HCL 2 MG CAPSULE PO PRN (12:24)
[2024-08-04] MEDS ORDERED: DICYCLOMINE HCL 10 MG CAPSULE PO PRN (12:24)
[2024-08-04] MEDS ORDERED: NALOXONE (NARCAN) HCL 4 MG/0.1 ML SPRAY NS PRN (12:24)
[2024-08-04] MEDS ORDERED: BENZOCAINE/MENTHOL (CHLORASEPTIC ) LOZENGE MM PRN (12:24)
[2024-08-04] MEDS ORDERED: NALOXONE HCL 0.4 MG/ML VIAL IM PRN (12:24)
[2024-08-04] MEDS ORDERED: ONDANSETRON *ODT* 4 MG TABLET SL PRN (12:24)
[2024-08-04] MEDS ORDERED: HYDROCHLOROTHIAZIDE 25 MG TABLET (FP) PO PRN (12:26)
[2024-08-04] MEDS ORDERED: PRENATAL VITAMINS W/ FOLIC ACID TABLET (FP) PO ONE (14:37)
[2024-08-04] MEDS: PRENATAL VITAMINS W/ FOLIC ACID TABLET (FP) PO SCH (14:39)
[2024-08-04] MEDS ORDERED: ACETAMINOPHEN 325 MG TABLET (FP) ONE (14:58)
[2024-08-04] MEDS: ACETAMINOPHEN 325 MG TABLET (FP) PO PRN (15:00)
[2024-08-04] MEDS: diazePAM 5 MG TABLET PO SCH (17:57)
[2024-08-04] MEDS: DOXYCYCLINE HYCLATE 100 MG TABLET PO SCH (18:00)
[2024-08-04 18:09] LABS: HIV INTERPRETATION NEGATIVE (NEGATIVE)
[2024-08-04] MEDS: THIAMINE 100 MG TABLET PO SCH (22:56)
[2024-08-04] MEDS: MELATONIN 5 MG TABLETS PO SCH (22:56)
[2024-08-05] MEDS: IBUPROFEN 600 MG TABLET (FP) PO PRN (10:41)
[2024-08-05 11:25] LABS: HEMATOCRIT 36.9 % (32.4-45.2); HEMOGLOBIN 11.8 GM/dL (10.7-15.3); MCH 26.9 pg (25.7-33.7); MEAN CELL VOLUME 84.3 fl (80-96); MEAN PLT VOLUME 9.6 fl (7.5-11.1); PLATELET COUNT 259 10^3/uL (134-434); RBC 4.38 M/mm3 (3.60-5.2); RDW 16.1 % (11.6-15.6); WHITE BLOOD COUNT 3.3 K/mm3 (4.0-10.0)
[2024-08-05] MEDS: amLODIPine BESYLATE 2.5 MG TABLET (FP) PO SCH (12:04)
[2024-08-05 13:12] LABS: POTASSIUM 4.3 mmol/L (3.5-5.1)
[2024-08-05 13:52] LABS: ALBUMIN 3.6 g/dl (3.4-5.0); BLOOD UREA NITROGEN 12.5 mg/dL (7-18)
[2024-08-05 13:53] LABS: CALCIUM 9.4 mg/dL (8.5-10.1)
[2024-08-05 13:55] LABS: CREATININE 0.7 mg/dL (0.55-1.3)
[2024-08-05 13:56] LABS: BILIRUBIN,TOTAL 0.2 mg/dL (0.2-1); TOT PROT 7.3 g/dl (6.4-8.2)
[2024-08-06] MEDS: diazePAM 5 MG TABLET PO SCH (06:08)
[2024-08-06] MEDS: PENICILLIN G BENZATHINE 2,400,000 UNIT/4 ML PFS IM ONE (10:42)
[2024-08-06] MEDS: amLODIPine BESYLATE 5 MG TABLET (FP) PO SCH (12:08)
[2024-08-06 17:10] VITALS: RESP 16; TEMP 97.5
[2024-08-06] MEDS: diazePAM 5 MG TABLET PO PRN (17:23)
[2024-08-06 19:31] VITALS: BP 184/108; PULSE 85
[2024-08-07] MEDS ORDERED: diazePAM 5 MG TABLET PO SCH (06:00)
[2024-08-08] MEDS ORDERED: diazePAM 5 MG TABLET PO ONE (06:00)
== END 2024-08-06 19:40 | disposition left against medical advice (07) | DRG 770 ==
LOC: YASAS 11:32 → Y6N 14:28
PROVIDERS: ADMIT Allergy & Immunology; ATTEND Surgery
PROC: HZ2ZZZZ Detoxification Services for Substance Abuse Treatment (ICD-10-PCS; principal; 2024-08-04)
DX: F10.230 Alcohol dependence with withdrawal, uncomplicated (principal); F14.20 Cocaine dependence, uncomplicated; F12.20 Cannabis dependence, uncomplicated; F17.210 Nicotine dependence, cigarettes, uncomplicated; G47.00 Insomnia, unspecified; I10 Essential (primary) hypertension; R76.8 Other specified abnormal immunological findings in serum; Z86.19 Personal history of other infectious and parasitic diseases; Z91.410 Personal history of adult physical and sexual abuse; Z63.0 Problems in relationship with spouse or partner; Z88.8 Allergy status to other drugs, medicaments and biological substances
CPT/HCPCS: 0241U-QW; 36415; 80053; 80305; 80307; 81025; 85027; 86593; 86780; 87389; 87491; 87591; 87661; 93005; 93010

== ENCOUNTER 2024-11-19 11:18 | Inpatient (IN) | payer OTHER ==
[2024-11-19 12:19] VITALS: BMI 20.8
[2024-11-19] MEDS ORDERED: MAG HYDROX/AL HYDROX/SIMETH 30 ML UNIT-DOSE CUP PO PRN (12:43)
[2024-11-19] MEDS ORDERED: BISMUTH SUBSALICYLATE 262 MG/15 ML BTL PO PRN (12:43)
[2024-11-19] MEDS ORDERED: MAGNESIUM HYDROX 2400MG/30ML ORAL SUSPENSION 30 ML CUP PO PRN (12:43)
[2024-11-19] MEDS ORDERED: DICYCLOMINE HCL 10 MG CAPSULE PO PRN (12:43)
[2024-11-19] MEDS ORDERED: NICOTINE POLACRILEX 2 MG GUM BUC PRN (12:43)
[2024-11-19] MEDS ORDERED: ONDANSETRON *ODT* 4 MG TABLET SL PRN (12:43)
[2024-11-19] MEDS ORDERED: IBUPROFEN 400 MG TABLET (FP) PO PRN (12:43)
[2024-11-19] MEDS ORDERED: BENZONATATE 200 MG CAPSULE PO PRN (12:43)
[2024-11-19] MEDS ORDERED: POLYETHYLENE GLYCOL (HEALTHYLAX) 3350 17 GM PACKET PO PRN (12:43)
[2024-11-19] MEDS ORDERED: guaiFENesin 600 MG TABLET.ER (FP) PO PRN (12:43)
[2024-11-19] MEDS ORDERED: METHOCARBAMOL 500 MG TABLET PO PRN (12:43)
[2024-11-19] MEDS ORDERED: NICOTINE POLACRILEX 2 MG LOZENGE BC PRN (12:43)
[2024-11-19] MEDS ORDERED: IBUPROFEN 600 MG TABLET (FP) PO PRN (12:43)
[2024-11-19] MEDS ORDERED: NALOXONE (NARCAN) HCL 4 MG/0.1 ML SPRAY NS PRN (12:43)
[2024-11-19] MEDS ORDERED: LOPERAMIDE HCL 2 MG CAPSULE PO PRN (12:43)
[2024-11-19] MEDS ORDERED: BENZOCAINE/MENTHOL (CHLORASEPTIC ) LOZENGE MM PRN (12:43)
[2024-11-19] MEDS ORDERED: amLODIPine BESYLATE 5 MG TABLET (FP) ONE (14:03)
[2024-11-19] MEDS: amLODIPine BESYLATE 5 MG TABLET (FP) PO ONE (14:05)
[2024-11-19] MEDS: ACETAMINOPHEN 325 MG TABLET (FP) PO PRN (14:06)
[2024-11-19] MEDS: hydrOXYzine PAMOATE 25 MG CAPSULE (FP) PO PRN (14:34)
[2024-11-19 17:59] LABS: HIV INTERPRETATION NEGATIVE (NEGATIVE)
[2024-11-20] MEDS: PRENATAL VITAMINS W/ FOLIC ACID TABLET (FP) PO SCH (10:12)
[2024-11-20] MEDS: THIAMINE 100 MG TABLET PO SCH (23:00)
[2024-11-20] MEDS: metroNIDAZOLE 0.75% VAGINAL GEL 70 GM TUBE VG SCH (23:00)
[2024-11-20] MEDS: MELATONIN 5 MG TABLETS PO SCH (23:00)
[2024-11-21 09:15] VITALS: RESP 18; TEMP 97.6
[2024-11-21] MEDS: amLODIPine BESYLATE 2.5 MG TABLET (FP) PO SCH (09:47)
[2024-11-21] MEDS: NALOXONE (NYS OPIOID OVERDOSE PROGRAM) 4 MG/0.1 ML SPRAY NS SCH (11:56)
[2024-11-21 13:04] VITALS: BP 155/88; PULSE 77
[2024-11-21] MEDS: VITAMINS A AND D TOPICAL OINTMENT TP SCH (13:13)
== END 2024-11-21 14:12 | disposition home or self-care (01) | DRG 774 ==
LOC: YASAS 11:18 → Y6N 13:49
PROVIDERS: ADMIT Allergy & Immunology; ATTEND Allergy & Immunology
PROC: HZ2ZZZZ Detoxification Services for Substance Abuse Treatment (ICD-10-PCS; principal; 2024-11-19)
DX: F10.20 Alcohol dependence, uncomplicated (principal); F14.10 Cocaine abuse, uncomplicated; F12.20 Cannabis dependence, uncomplicated; F17.210 Nicotine dependence, cigarettes, uncomplicated; F19.282 Other psychoactive substance dependence with psychoactive substance-induced sleep disorder; F19.24 Other psychoactive substance dependence with psychoactive substance-induced mood disorder; F31.9 Bipolar disorder, unspecified; I10 Essential (primary) hypertension; B37.31 Acute candidiasis of vulva and vagina; Z86.19 Personal history of other infectious and parasitic diseases; Z88.8 Allergy status to other drugs, medicaments and biological substances
CPT/HCPCS: 36415; 80305; 80307; 81025; 87389

== ENCOUNTER 2024-12-27 17:05 | Inpatient (IN) | payer OTHER ==
[2024-12-27 17:41] VITALS: BMI 19.7
[2024-12-27] MEDS ORDERED: guaiFENesin 600 MG TABLET.ER (FP) PO PRN (17:51)
[2024-12-27] MEDS ORDERED: MAGNESIUM HYDROX 2400MG/30ML ORAL SUSPENSION 30 ML CUP PO PRN (17:51)
[2024-12-27] MEDS ORDERED: BISMUTH SUBSALICYLATE 524 MG/30 ML PO PRN (17:51)
[2024-12-27] MEDS ORDERED: POLYETHYLENE GLYCOL (HEALTHYLAX) 3350 17 GM PACKET PO PRN (17:51)
[2024-12-27] MEDS ORDERED: LOPERAMIDE HCL 2 MG CAPSULE PO PRN (17:51)
[2024-12-27] MEDS ORDERED: hydrOXYzine PAMOATE 25 MG CAPSULE (FP) PO PRN (17:51)
[2024-12-27] MEDS ORDERED: BENZONATATE 200 MG CAPSULE PO PRN (17:51)
[2024-12-27] MEDS ORDERED: ONDANSETRON *ODT* 4 MG TABLET SL PRN (17:51)
[2024-12-27] MEDS ORDERED: NICOTINE POLACRILEX 2 MG GUM BUC PRN (17:51)
[2024-12-27] MEDS ORDERED: MAG HYDROX/AL HYDROX/SIMETH 30 ML UNIT-DOSE CUP PO PRN (17:51)
[2024-12-27] MEDS ORDERED: NICOTINE POLACRILEX 2 MG LOZENGE BC PRN (17:51)
[2024-12-27] MEDS ORDERED: NALOXONE (NARCAN) HCL 4 MG/0.1 ML SPRAY NS PRN (17:51)
[2024-12-27] MEDS ORDERED: IBUPROFEN 400 MG TABLET (FP) PO PRN (17:51)
[2024-12-27] MEDS ORDERED: DICYCLOMINE HCL 10 MG CAPSULE PO PRN (17:51)
[2024-12-27] MEDS ORDERED: BENZOCAINE/MENTHOL (CHLORASEPTIC ) LOZENGE MM PRN (17:51)
[2024-12-27] MEDS ORDERED: amLODIPine BESYLATE 5 MG TABLET (FP) ONE (18:35)
[2024-12-27] MEDS: amLODIPine BESYLATE 5 MG TABLET (FP) PO ONE (18:36)
[2024-12-27] MEDS: MELATONIN 5 MG TABLETS PO SCH (22:30)
[2024-12-27] MEDS: THIAMINE 100 MG TABLET PO SCH (22:30)
[2024-12-28] MEDS: amLODIPine BESYLATE 10 MG TABLET (FP) PO ONE (06:06)
[2024-12-28] MEDS: PRENATAL VITAMINS W/ FOLIC ACID TABLET (FP) PO SCH (10:06)
[2024-12-28 11:09] LABS: HEMATOCRIT 38.6 % (32.4-45.2); HEMOGLOBIN 12.7 GM/dL (10.7-15.3); MCH 28.2 pg (25.7-33.7); MCHC 32.9 g/dl (32.0-36.0); MEAN CELL VOLUME 85.8 fl (80-96); MEAN PLT VOLUME 9.3 fl (7.5-11.1); PLATELET COUNT 249 10^3/uL (134-434); RDW 14.6 % (11.6-15.6); WHITE BLOOD COUNT 3.1 K/mm3 (4.0-10.0)
[2024-12-28 11:51] LABS: CHLORIDE 103 mmol/L (98-107); POTASSIUM 4.1 mmol/L (3.5-5.1); SODIUM 138 mmol/L (136-145)
[2024-12-28 12:03] LABS: ALBUMIN 3.2 g/dl (3.4-5.0); ANION GAP 8 mmol/L (4-13); CALCIUM 9.3 mg/dL (8.5-10.1); CO2 27 mmol/L (21-32)
[2024-12-28 12:06] LABS: BLOOD UREA NITROGEN 17.2 mg/dL (7-18); GLUCOSE,RANDOM 73 mg/dL (74-106)
[2024-12-28 12:07] LABS: CREATININE 0.8 mg/dL (0.55-1.3); SGOT/AST 28 U/L (15-37)
[2024-12-28 12:08] LABS: BILIRUBIN,TOTAL 0.4 mg/dL (0.2-1)
[2024-12-28 12:09] LABS: ALK PHOS 73 U/L (45-117); TOT PROT 6.9 g/dl (6.4-8.2)
[2024-12-28 12:17] LABS: SGPT/ALT 29 U/L (13-61)
[2024-12-28] MEDS: VITAMINS A AND D TOPICAL OINTMENT TP SCH (12:37)
[2024-12-28] MEDS: LOSARTAN POTASSIUM 50 MG TABLET PO SCH (16:11)
[2024-12-28] MEDS: HYDROCHLOROTHIAZIDE 25 MG TABLET (FP) PO SCH (16:23)
[2024-12-28] MEDS: IBUPROFEN 600 MG TABLET (FP) PO PRN (19:07)
[2024-12-28 20:55] VITALS: RESP 16
[2024-12-28] MEDS: METHOCARBAMOL 500 MG TABLET PO PRN (22:02)
[2024-12-28] MEDS: ACETAMINOPHEN 325 MG TABLET (FP) PO PRN (22:02)
[2024-12-28] MEDS: METOPROLOL TARTRATE 25 MG TABLET (FP) PO ONE (22:04)
[2024-12-29 08:50] VITALS: BP 155/97; PULSE 85; TEMP 96
[2024-12-29] MEDS: amLODIPine BESYLATE 10 MG TABLET (FP) PO SCH (09:35)
[2024-12-29] MEDS: HYDROCHLOROTHIAZIDE 25 MG TABLET (FP) PO ONE (09:35)
== END 2024-12-29 09:40 | disposition home or self-care (01) | DRG 774 ==
LOC: YASAS 17:05 → Y3N 18:28
PROVIDERS: ADMIT Allergy & Immunology; ATTEND Allergy & Immunology
PROC: HZ2ZZZZ Detoxification Services for Substance Abuse Treatment (ICD-10-PCS; principal; 2024-12-27)
DX: F10.20 Alcohol dependence, uncomplicated (principal); F14.20 Cocaine dependence, uncomplicated; F12.20 Cannabis dependence, uncomplicated; F17.210 Nicotine dependence, cigarettes, uncomplicated; F31.9 Bipolar disorder, unspecified; F41.9 Anxiety disorder, unspecified; I10 Essential (primary) hypertension; Z86.19 Personal history of other infectious and parasitic diseases; Z91.410 Personal history of adult physical and sexual abuse; Z63.0 Problems in relationship with spouse or partner; Z59.01 Sheltered homelessness; Z88.8 Allergy status to other drugs, medicaments and biological substances
CPT/HCPCS: 36415; 80053; 80305; 80307; 81025; 85027; 86593; 86780